=== PATIENT | female | born 1965 | race Caucasian/White ===

== ENCOUNTER → 2020-01-23 13:38 | Outpatient (ROUT) | payer SELFPAY ==
[2020-01-23 13:40] LABS: Urine Drug Scr, Empl Non-NIDA See Separate Report
== END ==
DX: Z02.1 Encounter for pre-employment examination (principal)
CPT/HCPCS: 81099

== ENCOUNTER → 2020-07-23 14:31 | Outpatient (CLI) | payer OTHER, SELFPAY ==
[2020-07-23] MEDS: COVID-19 VACC(MODERNA-1)/PF 100 MCG/0.5 ML VIAL IM (14:39)
== END ==
PROVIDERS: Visit Provider Internal Medicine
DX: Z23 Encounter for immunization (principal)
CPT/HCPCS: 0011A; 91301

== ENCOUNTER → 2020-08-19 08:41 | Outpatient (CLI) | payer OTHER, SELFPAY ==
[2020-08-19] MEDS: COVID-19 VACC #2, MRNA(MOD) 100 MCG/0.5 ML VIAL IM (08:45)
== END ==
PROVIDERS: Visit Provider Internal Medicine
DX: Z23 Encounter for immunization (principal)
CPT/HCPCS: 0012A; 91301

== ENCOUNTER → 2020-10-16 15:37 | Outpatient (CLI) | payer OTHER, SELFPAY ==
--- NOTE | 2020-10-16 15:37 | DI.MG.S_ITS ---
BILATERAL DIGITAL SCREENING MAMMOGRAM 3D/2D WITH CAD: 10/16/2020 CLINICAL: Routine screening. Comparison is made to exams dated: 02/21/2015 mammogram, 10/23/2016 mammogram, and 12/26/2017 mammogram - outside location. There are scattered fibroglandular elements in both breasts. Current study was also evaluated with a Computer Aided Detection (CAD) system. No significant masses, calcifications, or other findings are seen in either breast. There has been no significant interval change. IMPRESSION: NEGATIVE There is no mammographic evidence of malignancy. A 1 year screening mammogram is recommended. This exam was interpreted at Station ID: [id number]. NOTE: For mammograms, a report in lay terms will be sent to the patient. Approximately 15% of breast malignancies will not be visualized mammographically. In the management of a palpable breast mass, a negative mammogram must not discourage biopsy of a clinically suspicious lesion. Electronically Signed By: Lonnie Nation M.D., jr/lul:10/16/2020 15:56:56 letter sent: Normal Exam ACR BI-RADS Category 1: Negative [id number]
== END ==
PROVIDERS: PCP Family Medicine; Referring Provider Family Medicine; Visit Provider Family Medicine
DX: Z12.31 Encounter for screening mammogram for malignant neoplasm of breast (principal)
CPT/HCPCS: 77063; 77067

== ENCOUNTER → 2021-01-14 10:10 | Outpatient (CLI) | payer OTHER, SELFPAY ==
[2021-01-14 11:45] LABS: Alanine Aminotransferase 38 IU/L (<35); Albumin 4.4 g/dL (3.5-5.0); Albumin Globulin Ratio 1.4 (1.0-2.8); Alkaline Phosphatase 85 U/L (38-126); Aspartate Aminotransferase 39 IU/L (14-36); BUN Creatinine Ratio 25.6 (6-22); Bilirubin Total 0.2 mg/dL (0.2-1.3); Blood Urea Nitrogen 11 mg/dL (7-17); Calcium 9.7 mg/dL (8.4-10.2); Carbon Dioxide 25 mmol/L (22-32); Chloride 105 mmol/L (98-107); Estimated Glomerular Filt Rate > 60.0 mL/min (>60); Globulin 3.2 g/dL (1.7-4.1); Glucose 137 mg/dL (70-100); HEMOLYSIS < 15 (0-50); Potassium 3.9 mmol/L (3.4-5.1); Sodium 138 mmol/L (137-145); Total Protein 7.6 g/dL (6.3-8.2)
[2021-01-14 12:01] LABS: Creatinine Urine Random 26.9 mg/dL
[2021-01-14 12:08] LABS: Microalbumin Urine Random < 0.6 mg/dL (0-1.6)
[2021-01-14 12:29] LABS: TSH w/ Reflex to FT4 0.62 uIU/mL (0.47-4.68)
[2021-01-15 07:10] LABS: Immunoglobulin A 343 mg/dL (87-352)
[2021-01-15 16:08] LABS: Tissue Transglutaminase IgA <2 U/mL (0-3); Tissue Transglutaminase IgG 6 U/mL (0-5)
[2021-01-17 21:40] LABS: Calprotectin, Stool 72 ug/g (0-120)
== END ==
PROVIDERS: PCP Family Medicine; Referring Provider Nurse Practitioner; Visit Provider Nurse Practitioner
DX: R19.7 Diarrhea, unspecified (principal); E03.9 Hypothyroidism, unspecified; E78.5 Hyperlipidemia, unspecified; I10 Essential (primary) hypertension; R74.8 Abnormal levels of other serum enzymes
CPT/HCPCS: 36415; 80053; 82043; 82570; 82784; 83516; 83993; 84443

== ENCOUNTER 2021-02-10 15:47 | Emergency (ER) | payer OTHER, SELFPAY ==
[2021-02-10 15:56] VITALS: BP 195/88; PULSE 101; RESP 20; TEMP 36.2; O2SAT 98; BMI 25.7
--- NOTE | 2021-02-10 15:59 | DI.RAD.S_ITS ---
PROCEDURE: XR CHEST 1V INDICATIONS: chest pain TECHNIQUE: One view of the chest was acquired. COMPARISON: None. FINDINGS: Surgical changes and devices: Numerous surgical clips projecting at the base of neck Lungs and pleura: Lungs are clear. No pleural effusions or pneumothorax. Mediastinum: Mediastinal contours appear normal. Heart size is normal. Bones and chest wall: No suspicious bony lesions. Overlying soft tissues appear unremarkable. IMPRESSION: No acute disease. Dictated by: Jarvis Parker M.D. on 02/10/2021 at 16:34 Approved by: Jarvis Parker M.D. on 02/10/2021 at 16:35
[2021-02-10 16:07] LABS: Add Manual Diff / Slide Review NO; Basophils Absolute Auto 100 /uL (0-100); Basophils Percent Auto 0.8 % (0-2); Eosinophils Absolute Auto 300 /uL (0-450); Eosinophils Percent Auto 2.4 % (2-4); Hematocrit 42.9 % (36-46); Hemoglobin 14.6 g/dL (12.0-16.0); Lymphocytes Absolute Auto 4100 /uL (1100-4500); Lymphocytes Percent Auto 37.3 % (25-40); Mean Corpuscular Hemoglobin 30.8 PG (26-34); Mean Corpuscular Volume 90.7 fL (80-100); Monocytes Absolute Auto 1200 /uL (0-900); Monocytes Percent Auto 10.9 % (3-14); Neutrophils Absolute Auto 5300 /uL (1500-7000); Neutrophils Percent Auto 48.6 % (50-75); Platelet Count 362 X10^3/uL (150-400); Red Blood Cell Count 4.72 X10^6/uL (4.0-5.2)
--- NOTE | 2021-02-10 16:13 | ED.DIZZY ---
HPI - Dizziness General Chief Complaint: Dizziness Stated Complaint: dizzy, headache, elevated heartrate Time Seen by Provider: 02/10/21 15:56 Source: patient Mode of arrival: Ambulatory Limitations: no limitations History of Present Illness HPI Narrative: 55-year-old female former smoker with history of hypertension presents with a chief complaint of 3 days of rapid irregular heart rate, palpitations and associated dizziness. She denies any chest pain or shortness of breath and states that the dizziness and headache or associated with the episodes of high heart rate. She denies any recent travel, history of cancer but does have a remote history of a DVT and had been treated with Coumadin for 3 months. She denies any dietary change in has had no fever or chills. Related Data Home Medications Medication Instructions Recorded Confirmed alprazolam 0.25 mg tablet (Xanax) 0.25 mg PO TID 09/04/20 11/24/20 aspirin 81 mg chewable tablet 81 mg PO DAILY 09/04/20 11/24/20 cholecalciferol (vitamin D3) 125 mcg PO 09/04/20 11/24/20 mcg (5,000 unit) disintegrating tablet Previous Rx's Medication Instructions Recorded levothyroxine 112 mcg tablet 112 mcg PO DAILY #90 tab 09/25/20 (Synthroid) losartan 25 mg tablet 25 mg PO DAILY #90 tab 09/25/20 metoprolol succinate 100 mg 100 mg PO DAILY #90 tab 09/25/20 tablet,extended release 24 hr duloxetine 60 mg capsule,delayed 60 mg PO DAILY #90 cap 10/24/20 release (Cymbalta) Allergies Allergy/AdvReac Type Severity Reaction Status Date / Time hydrochlorothiazide Allergy Intermediate wheezing Verified 02/10/21 15:55 and backpain Review of Systems Review of Systems Narrative: GENERAL: Denies chills, fatigue, malaise, fever, sweats. HEENT: Denies sinus pain, ear pain, sore throat, difficulty swallowing, dizziness. RESPIRATORY: See HPI CARDIOVASCULAR: See HPI GASTROINTESTINAL: Denies nausea, vomiting, abdominal pain, diarrhea, constipation, melena. : Denies dysuria, frequency, incontinence, hematuria, urinary retention. MUSCULOSKELETAL: denies weakness, joint pain, or bony pain SKIN: Denies rash, skin lesions, or other NEUROLOGIC: Denies weakness, headache, numbness, change in speech, confusion, seizures, incoordination. PSYCHIATRIC: No concerning psychosocial issues. 12 point review of systems is negative except for those stated above Patient History Medical History Cardiac arrhythmia Chicken pox Deep vein thrombosis (~06/2017) Fractures Hyperlipidemia Hypertension Hyperthyroidism Last menstrual period (LMP) > 10 days ago Surgical History Biceps tendonosis of right shoulder History of appendectomy History of thyroidectomy History of tonsillectomy S/P rotator cuff repair Status post right breast lumpectomy Family History Father Hyperlipidemia Grandfather Cancer Social History Smoking Status: Former smoker Smoking Status: Former smoker alcohol intake frequency: 0-2 drinks per day Substance Use Type: does not use Exam Narrative Exam Narrative: GENERAL: [55] year old patient appears stated age. Well-developed patient, in mild distress. HEAD: Atraumatic. Normocephalic. EYES: Pupils equal round and reactive. Extraocular motions intact. No scleral icterus. No injection or drainage. ENT: Nose without bleeding, purulent drainage. Throat without erythema, tonsillar hypertrophy or exudate. Airway patent. NECK: Trachea midline. Non tender CARDIOVASCULAR: Regular rate and rhythm without murmurs, gallops, or rubs. RESPIRATORY: Clear to auscultation. Breath sounds equal bilaterally. No wheezes, rales, or rhonchi. GASTROINTESTINAL: Abdomen soft, non-tender, nondistended. EXTREMITIES: No edema or joint tenderness. BACK: Nontender without deformity or crepitance. No flank tenderness. NEURO: AOx3. SKIN: No rash or erythema of visible areas Initial Vital Signs Initial Vital Signs: Vital Signs Temperature 97.1 F L 02/10/21 15:56 Pulse Rate 101 H 02/10/21 15:56 Respiratory Rate 20 02/10/21 15:56 Blood Pressure 195/88 H 02/10/21 15:56 Pulse Oximetry 98 02/10/21 15:56 Course Course Course Narrative: During history and physical patient is noted to have episodes of rapid (up to the 120s) irregular rhythm that on the monitor appears to be AFib versus flutter. This resolved without intervention Orders Ordered: ED Orders 02/10/21 15:59 XR chest 1V Stat EKG-12 Lead Stat 02/10/21 16:00 Complete Blood Count AUTO DIFF Stat Comprehensive Metabolic Panel Stat Lipase Stat Troponin & CK Cardiac Panel Stat Consultations Consultation #1: Discussed with on-call Cardiology we sure the opinion that it is not classic for AFib in not worth initiating anticoagulation at this point time. He recommends sending him a face sheet and rhythm strips as well as increasing patient's metoprolol to 150 daily. This is all been related to the patient and she understands and is in agreement with the plan and diagnosis. Vital Signs Vital signs: Vital Signs - 8 hr 02/10/21 15:56 02/10/21 17:49 02/10/21 17:52 Temperature 97.1 F L Pulse Rate 101 H 88 85 Respiratory Rate 20 22 Blood Pressure 195/88 H 125/62 Pulse Oximetry 98 97 98 02/10/21 18:00 Temperature Pulse Rate 83 Respiratory Rate Blood Pressure 132/69 Pulse Oximetry 98 MDM - Dizziness Lab Data Result diagrams: 02/10/21 16:00 02/10/21 16:00 Labs: Lab Results 02/10/21 02/10/21 Range/Units 16:00 16:00 WBC 11.0 (4.5-11.0) X10^3/uL RBC 4.72 (4.0-5.2) X10^6/uL Hgb 14.6 (12.0-16.0) g/dL Hct 42.9 (36-46) % MCV 90.7 (80-100) fL MCH 30.8 (26-34) PG MCHC 34.0 (30-36) % RDW 13.0 (11.6-14.8) % Plt Count 362 (150-400) X10^3/uL Neut % (Auto) 48.6 L (50-75) % Lymph % (Auto) 37.3 (25-40) % [place] % (Auto) 10.9 (3-14) % Eos % (Auto) 2.4 (2-4) % Baso % (Auto) 0.8 (0-2) % Neut # (Auto) 5300 (5472-2238) /uL Lymph # (Auto) 4100 (3521-2773) /uL [place] # (Auto) 1200 H (0-900) /uL Eos # (Auto) 300 (0-450) /uL Baso # (Auto) 100 (0-100) /uL Sodium 139 (137-145) mmol/L Potassium 4.0 (3.4-5.1) mmol/L Chloride 104 (98-107) mmol/L Carbon Dioxide 24 (22-32) mmol/L BUN 11 (7-17) mg/dL Creatinine 0.58 (0.52-1.04) mg/dL Estimated GFR > 60.0 (>60) mL/min BUN/Creatinine Ratio 19.0 (6-22) Glucose 122 H (70-100) mg/dL Calcium 10.6 H (8.4-10.2) mg/dL Total Bilirubin 0.5 (0.2-1.3) mg/dL AST 50 H (14-36) IU/L ALT 49 H (<35) IU/L Alkaline Phosphatase 95 (38-126) U/L Total Creatine Kinase 97 (30-135) U/L CK-MB (CK-2) TNP CK-MB (CK-2) Rel Index TNP Troponin I < 0.012 (0.01-0.034) ng/mL Total Protein 8.4 H (6.3-8.2) g/dL Albumin 4.9 (3.5-5.0) g/dL Globulin 3.5 (1.7-4.1) g/dL Albumin/Globulin Ratio 1.4 (1.0-2.8) Lipase 220 (23-300) U/L Discharge Plan Departure Patient Disposition: Home Clinical Impression: Atrial fibrillation Qualifiers: Atrial fibrillation type: paroxysmal Qualified Code(s): I48.0 - Paroxysmal atrial fibrillation Instructions: DI for Atrial Fibrillation Activity Restrictions/Additional Instructions: *You have been diagnosed with [paroxysmal atrial fibrillation] *What to do: *Please continue to take your regular medications as directed. [ ] New medication prescriptions sent to your pharmacy: [ ] [ ] New medication written as a paper prescription [x ] No new medications given * I have discussed her case with on-call Cardiology and we have faxed your information to him. He will like to see you in the office, his contact information is attached below. Until follow-up we will hold off on anticoagulation as we discussed. Also, please begin taking the new dose of metoprolol (150 mg daily) tomorrow. *If you do not have a primary care provider please contact the [facility] Resource line at [phone]. They will ask some questions about your medical history and help get you set up with a doctor in the community. *Return to Emergency Department if you should have any new, worsening or concerning symptoms, such as [fever greater than 101 F, shaking chills, worsening pain, persistent vomiting or other bothersome symptoms] Prescriptions: No Action levothyroxine [Synthroid] 112 mcg tablet 112 mcg PO DAILY Qty: 90 RF: 2 losartan 25 mg tablet 25 mg PO DAILY Qty: 90 RF: 2 metoprolol succinate 100 mg tablet extended release 24 hr 100 mg PO DAILY Qty: 90 RF: 2 duloxetine [Cymbalta] 60 mg capsule,delayed release(DR/EC) 60 mg PO DAILY Qty: 90 RF: 2 alprazolam [Xanax] 0.25 mg tablet 0.25 mg PO TID RF: 0 cholecalciferol (vitamin D3) 125 mcg (5,000 unit) tablet,disintegrating PO RF: 0 aspirin 81 mg tablet,chewable 81 mg PO DAILY RF: 0 Referrals: Milind Naik MD [Primary Care Provider] - Mal Dorado MD [Physician] -
[2021-02-10 16:25] LABS: Alanine Aminotransferase 49 IU/L (<35); Albumin 4.9 g/dL (3.5-5.0); Albumin Globulin Ratio 1.4 (1.0-2.8); Alkaline Phosphatase 95 U/L (38-126); Aspartate Aminotransferase 50 IU/L (14-36); Bilirubin Total 0.5 mg/dL (0.2-1.3); Blood Urea Nitrogen 11 mg/dL (7-17); Calcium 10.6 mg/dL (8.4-10.2); Carbon Dioxide 24 mmol/L (22-32); Chloride 104 mmol/L (98-107); Creatine Kinase 97 U/L (30-135); Estimated Glomerular Filt Rate > 60.0 mL/min (>60); Globulin 3.5 g/dL (1.7-4.1); Glucose 122 mg/dL (70-100); HEMOLYSIS < 15 (0-50); Lipase 220 U/L (23-300); Sodium 139 mmol/L (137-145); Total Protein 8.4 g/dL (6.3-8.2)
[2021-02-10 16:37] LABS: Troponin I < 0.012 ng/mL (0.01-0.034)
[2021-02-10 17:49] VITALS: PULSE 88; RESP 22; O2SAT 97
[2021-02-10 17:52] VITALS: BP 125/62; PULSE 85; O2SAT 98
[2021-02-10 18:00] VITALS: BP 132/69; PULSE 83; O2SAT 98
== END 2021-02-10 18:58 | disposition home or self-care (01) ==
PROVIDERS: Emergency Provider Emergency Medicine; PCP Family Medicine
DX: I48.0 Paroxysmal atrial fibrillation (principal); Z79.01 Long term (current) use of anticoagulants
CPT/HCPCS: 36415; 71045; 80053; 82550; 83690; 84484; 85025; 93005; 99283; 99284

== ENCOUNTER → 2021-02-23 15:08 | Outpatient (CLI) | payer OTHER, SELFPAY ==
--- NOTE | 2021-03-18 11:03 | PM.CARDMON.1 ---
[employer] Report Referral & Results Date Patient Seen: 02/23/21 Requesting provider: Milind Naik Indication: Atrial fibrillation Duration of monitoring (days): 6 Diary information: There were 2 patient triggered events. Both these events were associated with sinus rhythm only Data: Minimum heart rate identified was 54 beats per minute at 07:52 on 02/24/2021 Maximum heart rate was 150 beats per minute at 12:04 on 03/01/2021 Less than 1% of identified beats were ventricular or supraventricular ectopic in origin, which would classify them as rare. No atrial fibrillation was identified Impression: Normal 6 day director speech and hearing without evidence of dysrhythmia including an absence of atrial fibrillation.
== END ==
PROVIDERS: PCP Internal Medicine Cardiovascular Disease; Referring Provider Family Medicine; Visit Provider Family Medicine
DX: I48.91 Unspecified atrial fibrillation (principal)
CPT/HCPCS: 93242; 93244

== ENCOUNTER 2021-04-14 15:39 | Emergency (ER) | payer OTHER, SELFPAY ==
[2021-04-14 15:42] VITALS: BP 136/62; PULSE 87; RESP 16; TEMP 36.4; O2SAT 99
--- NOTE | 2021-04-14 15:53 | ED.LOWEXIN ---
HPI - Extremity Injury (Lower) General Chief Complaint: Extremity Injury, Lower Stated Complaint: rt leg and buttock pain Time Seen by Provider: 04/14/21 15:53 Source: patient Mode of arrival: Ambulatory History of Present Illness HPI Narrative: 55-year-old female former smoker with history of hyperlipidemia, hypertension, hypothyroidism presents with a chief complaint of work related injury suffered just prior to arrival. She was walking and tripped over a stool and stepped awkwardly and felt a pulling and tearing sensation in her right buttock and right posterior thigh. She denies falling or any direct trauma. She has no loss of control of bowel or bladder. She has no midline back tenderness. She has no numbness, tingling or weakness. She has increased pain with use of her right leg but can not ambulate relatively well. Related Data Home Medications Medication Instructions Recorded Confirmed cholecalciferol (vitamin D3) 125 mcg PO 09/04/20 02/13/21 mcg (5,000 unit) disintegrating tablet aspirin 325 mg tablet 325 mg PO DAILY 02/13/21 02/13/21 famotidine 20 mg tablet 20 mg PO BID tab 02/13/21 02/13/21 mesalamine 1.2 gram tablet,delayed g PO 02/13/21 02/13/21 release Previous Rx's Medication Instructions Recorded levothyroxine 112 mcg tablet 112 mcg PO DAILY #90 tab 09/25/20 (Synthroid) losartan 25 mg tablet 25 mg PO DAILY #90 tab 09/25/20 duloxetine 60 mg capsule,delayed 60 mg PO DAILY #90 cap 10/24/20 release (Cymbalta) albuterol sulfate 90 mcg/actuation 2 puff INHALATION Q4-6H PRN #8.5 g 02/11/21 aerosol inhaler (Ventolin HFA) fluticasone propionate 110 2 puff INHALATION BID #12 g 02/11/21 mcg/actuation HFA aerosol inhaler (Flovent HFA) metoprolol succinate 100 mg 200 mg PO DAILY #180 tab 02/13/21 tablet,extended release 24 hr alprazolam 0.25 mg tablet (Xanax) 0.25 mg PO TID PRN #30 tab 04/13/21 acetaminophen 300 mg-codeine 30 mg 1 tab PO Q6H PRN #20 tab 04/14/21 tablet ketorolac 10 mg tablet 10 mg PO Q6H PRN #14 tab 04/14/21 Allergies Allergy/AdvReac Type Severity Reaction Status Date / Time hydrochlorothiazide Allergy Intermediate wheezing Verified 02/13/21 14:53 and backpain Review of Systems Review of Systems Narrative: GENERAL: Denies chills, fatigue, malaise, fever, sweats. HEENT: Denies sinus pain, ear pain, sore throat, difficulty swallowing, dizziness. RESPIRATORY: Denies dyspnea, cough, wheezing, hemoptysis, sputum. CARDIOVASCULAR: Denies chest pain, palpitations, orthopnea, edema, GASTROINTESTINAL: Denies nausea, vomiting, abdominal pain, diarrhea, constipation, melena. : Denies dysuria, frequency, incontinence, hematuria, urinary retention. MUSCULOSKELETAL: See HPI SKIN: Denies rash, skin lesions, or other NEUROLOGIC: Denies weakness, headache, numbness, change in speech, confusion, seizures, incoordination. PSYCHIATRIC: No concerning psychosocial issues. 12 point review of systems is negative except for those stated above Patient History Medical History Cardiac arrhythmia Chicken pox Deep vein thrombosis (~06/2017) Fractures Hyperlipidemia Hypertension Hyperthyroidism Last menstrual period (LMP) > 10 days ago Surgical History Biceps tendonosis of right shoulder History of appendectomy History of thyroidectomy History of tonsillectomy S/P rotator cuff repair Status post right breast lumpectomy Family History Father Hyperlipidemia Grandfather Cancer Social History Smoking Status: Former smoker Smoking Status: Former smoker alcohol intake frequency: 0-2 drinks per day Substance Use Type: does not use Exam Narrative Exam Narrative: GENERAL: [55 year old patient appears stated age. Well-developed patient, in mild distress. Standing, able to ambulate but with antalgic gait HEAD: Atraumatic. Normocephalic. EYES: Pupils equal round and reactive. Extraocular motions intact. No scleral icterus. No injection or drainage. ENT: Nose without bleeding, purulent drainage. Throat without erythema, tonsillar hypertrophy or exudate. Airway patent. NECK: Trachea midline. Non tender CARDIOVASCULAR: Regular rate and rhythm without murmurs, gallops, or rubs. RESPIRATORY: Clear to auscultation. Breath sounds equal bilaterally. No wheezes, rales, or rhonchi. GASTROINTESTINAL: Abdomen soft, non-tender, nondistended. EXTREMITIES: No obvious swelling, ecchymosis or edema. Pain to palpation of buttocks and hamstrings. Patient has full strength with use of hamstrings, flexion at knee. No calf pain, Achilles intact. Suspect hamstrings in gluteal strain BACK: Nontender without deformity or crepitance. No flank tenderness. NEURO: AOx3. SKIN: No rash or erythema of visible areas Initial Vital Signs Initial Vital Signs: Vital Signs Temperature 97.5 F L 04/14/21 15:42 Pulse Rate 87 04/14/21 15:42 Respiratory Rate 16 04/14/21 15:42 Blood Pressure 136/62 04/14/21 15:42 Pulse Oximetry 99 04/14/21 15:42 Course Vital Signs Vital signs: Vital Signs - 8 hr 04/14/21 15:42 Temperature 97.5 F L Pulse Rate 87 Respiratory Rate 16 Blood Pressure 136/62 Pulse Oximetry 99 MDM - Extremity Injury (Lower) MDM Narrative Medical decision making narrative: Patient felt pulling in her right buttock and posterior right leg after stepping awkwardly. She has full range of motion and strength. No imaging indicated at this point time. Return precautions given and questions answered to her apparent satisfaction Discharge Plan Departure Patient Disposition: Home Clinical Impression: Right hamstring injury Qualifiers: Encounter type: initial encounter Qualified Code(s): S76.301A - Unspecified injury of muscle, fascia and tendon of the posterior muscle group at thigh level, right thigh, initial encounter Instructions: DI for Hamstring Strain Activity Restrictions/Additional Instructions: *You have been diagnosed with [right hamstring injury, no evidence of tear. *What to do: *Please continue to take your regular medications as directed. [x ] New medication prescriptions sent to your pharmacy: [ [facility]] [ ] New medication written as a paper prescription [ ] No new medications given *Please follow up with your primary care provider in 2-3 days, call for an appointment. Let them know you were seen in the Emergency Department and that we ask that you be seen in follow up. We will electronically transmit a record of today's note if your PCP is in our system *If you do not have a primary care provider please contact the [facility] Resource line at [phone]. They will ask some questions about your medical history and help get you set up with a doctor in the community. *Return to Emergency Department if you should have any new, worsening or concerning symptoms, such as [fever greater than 101 F, shaking chills, worsening pain, persistent vomiting or other bothersome symptoms] Prescriptions: New ketorolac 10 mg tablet 10 mg PO Q6H PRN (Reason: pain) Qty: 14 RF: 0 acetaminophen-codeine 300-30 mg tablet 1 tab PO Q6H PRN (Reason: pain) Qty: 20 RF: 0 No Action levothyroxine [Synthroid] 112 mcg tablet 112 mcg PO DAILY Qty: 90 RF: 2 losartan 25 mg tablet 25 mg PO DAILY Qty: 90 RF: 2 duloxetine [Cymbalta] 60 mg capsule,delayed release(DR/EC) 60 mg PO DAILY Qty: 90 RF: 2 albuterol sulfate [Ventolin HFA] 90 mcg/actuation HFA aerosol inhaler 2 puff inhalation Q4-6H PRN (Reason: shortness of breath or wheezing) Qty: 8.5 RF: 2 Flovent HFA 110 mcg/actuation HFA aerosol inhaler 2 puff inhalation BID Qty: 12 RF: 2 alprazolam [Xanax] 0.25 mg tablet 0.25 mg PO TID PRN (Reason: anxiety) Qty: 30 RF: 0 aspirin 325 mg tablet 325 mg PO DAILY RF: 0 famotidine 20 mg tablet 20 mg PO BID RF: 0 mesalamine 1.2 gram tablet,delayed release (DR/EC) PO RF: 0 metoprolol succinate 100 mg tablet extended release 24 hr 200 mg PO DAILY Qty: 180 RF: 2 cholecalciferol (vitamin D3) 125 mcg (5,000 unit) tablet,disintegrating PO RF: 0 Referrals: Mal Dorado MD [Primary Care Provider] - Stand Alone Forms: Work Release Note
--- NOTE | 2021-04-14 16:11 | PC.NURSE ---
Addendum entered by Wilma Morataya R.N. 04/14/21 16:11: exam deferred to Dr. Gu Original Note: exam referred to Dr. gu
== END 2021-04-14 16:14 | disposition home or self-care (01) ==
PROVIDERS: Emergency Provider Emergency Medicine; PCP Internal Medicine Cardiovascular Disease
DX: S76.301A Unspecified injury of muscle, fascia and tendon of the posterior muscle group at thigh level, right thigh, initial encounter (principal); X50.1XXA Overexertion from prolonged static or awkward postures, initial encounter; Y99.0 Civilian activity done for income or pay
CPT/HCPCS: 99281

== ENCOUNTER → 2021-05-27 18:32 | Outpatient (CLI) | payer OTHER, SELFPAY | PROVIDERS: PCP Internal Medicine Cardiovascular Disease; Referring Provider Internal Medicine; Visit Provider Internal Medicine | DX: Z23 Encounter for immunization (principal) | CPT/HCPCS: 90471; 90686 ==

== ENCOUNTER → 2021-07-16 08:41 | Outpatient (CLI) | payer OTHER, SELFPAY ==
[2021-07-16 09:08] LABS: Hemoglobin A1C% w Est Avg Glu 6.1 % (4.0-6.0)
[2021-07-16 09:11] LABS: Alanine Aminotransferase 57 IU/L (<35); Albumin 4.6 g/dL (3.5-5.0); Albumin Globulin Ratio 1.4 (1.0-2.8); Alkaline Phosphatase 77 U/L (38-126); Aspartate Aminotransferase 55 IU/L (14-36); Bilirubin Total 0.4 mg/dL (0.2-1.3); Blood Urea Nitrogen 13 mg/dL (7-17); Calcium 9.6 mg/dL (8.4-10.2); Carbon Dioxide 28 mmol/L (22-32); Chloride 103 mmol/L (98-107); Estimated Glomerular Filt Rate > 60.0 mL/min (>60); Globulin 3.4 g/dL (1.7-4.1); Glucose 106 mg/dL (70-100); HEMOLYSIS < 15 (0-50); Potassium 4.2 mmol/L (3.4-5.1); Sodium 139 mmol/L (137-145)
== END ==
PROVIDERS: PCP Family Medicine; Referring Provider Family Medicine; Visit Provider Family Medicine
DX: R74.8 Abnormal levels of other serum enzymes (principal); I10 Essential (primary) hypertension; E78.2 Mixed hyperlipidemia; R73.9 Hyperglycemia, unspecified
CPT/HCPCS: 36415; 80053; 83036

== ENCOUNTER → 2021-07-29 10:09 | Outpatient (CLI) | payer OTHER, SELFPAY ==
[2021-07-30 04:34] LABS: HBsAg Screen Negative (Negative); Hepatitis A Antibody IgM Negative (Negative); Hepatitis B Core Antibody IgM Negative (Negative); Hepatitis C Antibody <0.1 s/co ratio (0.0-0.9)
== END ==
PROVIDERS: PCP Family Medicine; Referring Provider Family Medicine; Visit Provider Family Medicine
DX: R74.8 Abnormal levels of other serum enzymes (principal)
CPT/HCPCS: 36415; 80074

== ENCOUNTER → 2021-08-10 07:41 | Outpatient (CLI) | payer OTHER, SELFPAY ==
--- NOTE | 2021-08-10 | DI.MRI.S_ITS ---
PROCEDURE: MR HEAD/BRAIN WO/W CON INDICATIONS: Other migraine, not intractable TECHNIQUE: Noncontrast sagittal and axial FLAIR, axial and coronal T2 fast spin echo, axial VIBE, axial gradient echo, axial diffusion and ADC through the brain. After the administration of contrast, axial and coronal VIBE with fat saturation through the brain. COMPARISON: None. FINDINGS: Image quality: Excellent. CSF spaces: Ventricles are normal in size and shape. Basal cisterns are patent. No extra-axial fluid collections. Brain: Multiple foci abnormal T2 weighted hyperintensity are seen within the periventricular deep white. Numerous juxtacortical lesions are also seen, primarily involving the frontal lobes. There is involvement of the corpus callosum. A few brainstem lesions are seen. No definite cerebellar lesions can be seen. These lesions do not enhance. No intracranial bleeds or mass effects. Claire-white matter interface appears intact. No abnormal intracranial enhancement. Diffusion weighted images show no acute ischemic insults. Brainstem appears normal. Normal intravascular flow voids are present. Skull and face: Calvarial marrow signal is normal. Orbits appear normal. Sinuses: Sinuses and mastoids are clear. Mild rightward nasal septal deviation can be seen. IMPRESSION: Numerous foci of abnormal T2 weighted hyperintensity can be seen, without abnormal enhancement. The imaging appearance is highly suspicious for multiple sclerosis. A cause of headache is not seen. Dictated by: Juan Miguel Chamberlain M.D. on 08/10/2021 at 8:10 Approved by: Juan Miguel Chamberlain M.D. on 08/10/2021 at 8:13
== END ==
PROVIDERS: PCP Family Medicine; Referring Provider Ophthalmology; Visit Provider Ophthalmology
DX: G43.809 Other migraine, not intractable, without status migrainosus (principal); J34.2 Deviated nasal septum
CPT/HCPCS: 70553

== ENCOUNTER → 2021-08-20 07:17 | Outpatient (CLI) | payer OTHER, SELFPAY | PROVIDERS: PCP Family Medicine; Referring Provider Family Medicine; Visit Provider Family Medicine | DX: K76.0 Fatty (change of) liver, not elsewhere classified (principal); R74.8 Abnormal levels of other serum enzymes; E78.2 Mixed hyperlipidemia ==

== ENCOUNTER → 2021-08-20 07:19 | Outpatient (CLI) | payer OTHER, SELFPAY ==
--- NOTE | 2021-08-20 07:23 | DI.US.S_ITS ---
PROCEDURE: US ABDOMEN LIMITED INDICATIONS: PERSISTENT ELEVATED LIVER ENZYMES TECHNIQUE: Real-time scanning was performed of the abdominal and retroperitoneal organs, with image documentation. COMPARISON: None. FINDINGS: Liver: Increased echogenicity, compatible hepatic steatosis. Measures 12.5 cm in length. Gallbladder: Within normal limits. No shadowing gallstones. Biliary ducts: Intrahepatic bile ducts are non-dilated. Extrahepatic bile duct caliber measures 5.5 mm. Normal is 6-7 mm or less in diameter, or 10 mm or less post-cholecystectomy. Pancreas: Visualized portions of the pancreas are sonographically normal. Miscellaneous: No free abdominal fluid. IMPRESSION: 1. Hepatic steatosis. Dictated by: Etienne Cook M.D. on 08/20/2021 at 9:18 Approved by: Etienne Cook M.D. on 08/20/2021 at 9:20
[2021-08-20 08:40] LABS: Add Manual Diff / Slide Review NO; Basophils Absolute Auto 0 /uL (0-100); Basophils Percent Auto 0.6 % (0-2); Eosinophils Absolute Auto 200 /uL (0-450); Eosinophils Percent Auto 3.4 % (2-4); Hematocrit 40.6 % (36-46); Hemoglobin 13.9 g/dL (12.0-16.0); Lymphocytes Absolute Auto 2500 /uL (1100-4500); Lymphocytes Percent Auto 39.6 % (25-40); Mean Corpuscular HGB Conc 34.3 % (30-36); Mean Corpuscular Volume 90.3 fL (80-100); Monocytes Absolute Auto 600 /uL (0-900); Monocytes Percent Auto 9.7 % (3-14); Neutrophils Absolute Auto 3000 /uL (1500-7000); Neutrophils Percent Auto 46.7 % (50-75); Platelet Count 322 X10^3/uL (150-400); Red Cell Distribution Width 12.6 % (11.6-14.8); White Blood Cell Count 6.3 X10^3/uL (4.5-11.0)
[2021-08-20 08:52] LABS: Alanine Aminotransferase 64 IU/L (<35); Albumin 4.7 g/dL (3.5-5.0); Albumin Globulin Ratio 1.4 (1.0-2.8); Alkaline Phosphatase 85 U/L (38-126); Aspartate Aminotransferase 65 IU/L (14-36); BUN Creatinine Ratio 22.2 (6-22); Bilirubin Total 0.6 mg/dL (0.2-1.3); Blood Urea Nitrogen 14 mg/dL (7-17); Calcium 9.6 mg/dL (8.4-10.2); Carbon Dioxide 28 mmol/L (22-32); Chloride 102 mmol/L (98-107); Estimated Glomerular Filt Rate > 60.0 mL/min (>60); Globulin 3.4 g/dL (1.7-4.1); Glucose 105 mg/dL (70-100); HEMOLYSIS < 15 (0-50); Potassium 4.4 mmol/L (3.4-5.1); Sodium 137 mmol/L (137-145); Total Protein 8.1 g/dL (6.3-8.2)
[2021-08-20 08:58] LABS: Hemoglobin A1C% w Est Avg Glu 5.9 % (4.0-6.0)
== END ==
PROVIDERS: PCP Family Medicine; Referring Provider Podiatrist Foot & Ankle Surgery; Visit Provider Podiatrist Foot & Ankle Surgery
DX: E78.2 Mixed hyperlipidemia (principal); R74.8 Abnormal levels of other serum enzymes; Z01.812 Encounter for preprocedural laboratory examination; K76.0 Fatty (change of) liver, not elsewhere classified
CPT/HCPCS: 36415; 76705; 80053; 83036; 85025; 93005

== ENCOUNTER → 2021-09-07 13:12 | Outpatient (CLI) | payer OTHER, SELFPAY ==
[2021-09-07 15:53] LABS: Vitamin B12 Reflex MMA if <400 745 pg/mL (239-931)
== END ==
PROVIDERS: PCP Family Medicine; Referring Provider Specialist; Visit Provider Specialist
DX: H54.7 Unspecified visual loss (principal); R41.3 Other amnesia
CPT/HCPCS: 36415; 82607

== ENCOUNTER → 2021-10-29 09:29 | Outpatient (CLI) | payer OTHER, SELFPAY ==
--- NOTE | 2021-10-29 | DI.MRI.S_ITS ---
PROCEDURE: MR HEAD/BRAIN WO/W CON INDICATIONS: ABNORMAL MRI TECHNIQUE: Noncontrast axial T1 spin echo, axial T2 fast spin echo, sagittal and axial FLAIR, coronal T2 fast spin echo, axial gradient echo, axial diffusion and ADC through the brain. After the administration of contrast, axial and coronal 3D VIBE or T1 spin echo with fat saturation through the brain. COMPARISON: [facility], MR, MR HEAD/BRAIN WO/W CON, 08/10/2021, 8:22. FINDINGS: Image quality: Diagnostic, with note made of motion artifact. CSF Spaces: Basal cisterns are patent. No extra-axial fluid collections. Ventricles are normal in size and shape. Brain: Several foci of scattered T2 weighted hyperintensity can be seen primarily within the periventricular deep white matter. Several juxtacortical lesions can also be seen. Potential brainstem lesions are present, although not well seen. These foci do not enhance. Compared to the prior MRI dated 08/10/2021, these are not progressed. No midline shift. No intracranial bleeds or masses. No abnormal intracranial enhancement. The brainstem appears normal. Diffusion-weighted images demonstrate no acute ischemic insults. Normal intravascular flow voids are present. Skull and face: Calvarial marrow is normal in signal. Orbits appear normal. Sinuses: Sinuses and mastoids appear clear. IMPRESSION: Stable foci of abnormal T2 weighted hyperintensity can be seen, including within the juxtacortical white matter. These are consistent with stable multiple sclerosis, although not pathognomonic. Dictated by: Juan Miguel Chamberlain M.D. on 10/29/2021 at 9:08 Approved by: Juan Miguel Chamberlain M.D. on 10/29/2021 at 9:10
== END ==
PROVIDERS: PCP Family Medicine; Referring Provider Specialist; Visit Provider Specialist
DX: R90.89 Other abnormal findings on diagnostic imaging of central nervous system (principal)
CPT/HCPCS: 70553; A9579

== ENCOUNTER 2021-12-08 15:42 | Emergency (ER) | payer OTHER, SELFPAY ==
[2021-12-08] VITALS (8 sets, daily range): BP systolic 125–158; BP diastolic 60–90; PULSE 85–115; RESP 20–25; TEMP 36.7; O2SAT 96–99
--- NOTE | 2021-12-08 16:04 | DI.RAD.S_ITS ---
PROCEDURE: XR CHEST 2V INDICATIONS: Chest pain with inspiration; ?PE TECHNIQUE: 2 views of the chest were acquired. COMPARISON: [facility], CR, XR CHEST 1V, 02/10/2021, 16:02. FINDINGS: Surgical changes and devices: Surgical clips are noted in neck soft tissue unchanged from prior study. Lungs and pleura: Lungs are clear. No pleural effusions or pneumothorax. Mediastinum: Mediastinal contours are normal. Heart size is normal. Bones and chest wall: No suspicious bony abnormalities. Soft tissues appear unremarkable. IMPRESSION: No acute cardiopulmonary pathology. Dictated by: Darrell Peters M.D. on 12/08/2021 at 16:31 Approved by: Darrell Peters M.D. on 12/08/2021 at 16:31
[2021-12-08 16:10] LABS: Add Manual Diff / Slide Review NO; Basophils Absolute Auto 0 /uL (0-100); Basophils Percent Auto 0.4 % (0-2); Eosinophils Absolute Auto 100 /uL (0-450); Hematocrit 41.8 % (36-46); Hemoglobin 14.4 g/dL (12.0-16.0); Lymphocytes Absolute Auto 2600 /uL (1100-4500); Lymphocytes Percent Auto 30.8 % (25-40); Mean Corpuscular HGB Conc 34.5 % (30-36); Mean Corpuscular Hemoglobin 30.7 PG (26-34); Mean Corpuscular Volume 88.9 fL (80-100); Monocytes Absolute Auto 900 /uL (0-900); Monocytes Percent Auto 10.1 % (3-14); Neutrophils Absolute Auto 4800 /uL (1500-7000); Neutrophils Percent Auto 57.7 % (50-75); Platelet Count 371 X10^3/uL (150-400); Red Cell Distribution Width 12.3 % (11.6-14.8); White Blood Cell Count 8.4 X10^3/uL (4.5-11.0)
--- NOTE | 2021-12-08 16:11 | DI.CT.S_ITS ---
PROCEDURE: CT ANGIO CHEST PE PROTOCOL INDICATIONS: ?PE TECHNIQUE: After the administration of intravenous contrast, 2 mm thick sections acquired from the pulmonary apices to the posterior costophrenic angles. 3-dimensional maximum intensity projection (MIP) coronal and sagittal reformats were then acquired through the thorax. For radiation dose reduction, the following was used: automated exposure control, adjustment of mA and/or kV according to patient size. COMPARISON: None. FINDINGS: Image quality: Excellent. Pulmonary arteries: Pulmonary arteries are normal in size, and demonstrate no intraluminal filling defects to suggest central pulmonary embolism. Lungs and pleura: Linear atelectasis, inferior lingula of the left lung. No pleural effusions or pneumothorax. Central and peripheral airways are patent. Mediastinum: Heart size is normal, without pericardial effusion. No mediastinal or hilar adenopathy. Thoracic aorta is normal in caliber and enhancement. Esophagus is normal in caliber, without hiatal hernia. Bones and chest wall: No suspicious bony lesions. Ribs and thoracic spine appear intact throughout. Extensive presumed thyroidectomy clips. No axillary or supraclavicular adenopathy. Abdomen: Visualized upper abdominal solid organs appear normal in the early arterial phase of enhancement. IMPRESSION: 1. No evidence acute pulmonary emboli. 2. No evidence acute pulmonary process. Dictated by: Nile Florez M.D. on 12/08/2021 at 16:51 Approved by: Nile Florez M.D. on 12/08/2021 at 16:54
[2021-12-08 16:19] LABS: Prothrombin Time 11.7 SECONDS (10.1-12.7)
[2021-12-08 16:21] LABS: PTT Partial Thromboplastin Tim 33 SECONDS (26.4-36.2)
[2021-12-08 16:22] LABS: Alanine Aminotransferase 45 IU/L (<35); Albumin 5.2 g/dL (3.5-5.0); Albumin Globulin Ratio 1.5 (1.0-2.8); Alkaline Phosphatase 87 U/L (38-126); Aspartate Aminotransferase 47 IU/L (14-36); BUN Creatinine Ratio 17.3 (6-22); Bilirubin Total 0.3 mg/dL (0.2-1.3); Blood Urea Nitrogen 9 mg/dL (7-17); Calcium 9.7 mg/dL (8.4-10.2); Carbon Dioxide 25 mmol/L (22-32); Chloride 102 mmol/L (98-107); Estimated Glomerular Filt Rate > 60 mL/min (>60); Globulin 3.5 g/dL (1.7-4.1); Glucose 146 mg/dL (70-100); HEMOLYSIS 24 (0-50); Sodium 139 mmol/L (137-145); Total Protein 8.7 g/dL (6.3-8.2)
[2021-12-08 16:34] LABS: Troponin I < 0.012 ng/mL (0.01-0.034)
--- NOTE | 2021-12-08 17:24 | ED.CHESTPAIN ---
HPI - Chest Pain <Rashawn Orellana PA-C - Last Filed: 12/08/21 19:23> General Chief Complaint: Chest Pain Stated Complaint: BACK PAIN RIGHT LUNG PAIN Time Seen by Provider: 12/08/21 15:46 Source: patient and family Mode of arrival: Wheelchair History of Present Illness HPI narrative: 56-year-old female with past medical history DVT, hyperlipidemia, hypothyroidism, hypertension, status post ankle surgery sen by the [facility] due to concern for a pulmonary embolism. Patient states she is nonweightbearing currently, with limited movements. Patient complains of pleuritic pain in the right upper back that started 2 days ago, and much worsened this morning. Patient states that she has pain every time on inspiration. Patient denies chest pain, shortness of breath, fever, chills, nausea, vomiting, abdominal pain, dysuria, lightheadedness, dizziness, syncope. Patient has a prior history of DVT. Patient is not on blood thinners. Patient is on baby aspirin twice a day. Related Data Home Medications Medication Instructions Recorded Confirmed cholecalciferol (vitamin D3) 125 mcg PO 09/04/20 02/13/21 mcg (5,000 unit) disintegrating tablet aspirin 325 mg tablet 325 mg PO DAILY 02/13/21 02/13/21 famotidine 20 mg tablet 20 mg PO BID tab 02/13/21 02/13/21 mesalamine 1.2 gram tablet,delayed g PO 02/13/21 02/13/21 release Previous Rx's Medication Instructions Recorded albuterol sulfate 90 mcg/actuation 2 puff INHALATION Q4-6H PRN #8.5 g 02/11/21 aerosol inhaler (Ventolin HFA) metoprolol succinate 100 mg 200 mg PO DAILY #180 tab 02/13/21 tablet,extended release 24 hr ketorolac 10 mg tablet 10 mg PO Q6H PRN #14 tab 04/14/21 fluticasone propionate 110 2 puff INHALATION BID #12 g 05/12/21 mcg/actuation HFA aerosol inhaler (Flovent HFA) losartan 25 mg tablet 25 mg PO DAILY #90 tab 06/12/21 duloxetine 60 mg capsule,delayed 60 mg PO DAILY #90 cap 07/06/21 release (Cymbalta) levothyroxine 112 mcg tablet 112 mcg PO DAILY #90 tab 07/06/21 (Synthroid) acetaminophen 300 mg-codeine 30 mg 1 tab PO Q6H PRN #20 tab 10/13/21 tablet alprazolam 0.25 mg tablet (Xanax) 0.25 mg PO TID PRN #30 tab 11/09/21 Allergies Allergy/AdvReac Type Severity Reaction Status Date / Time hydrochlorothiazide Allergy Intermediate wheezing Verified 12/08/21 15:39 and backpain Review of Systems <Rashawn Orellana PA-C - Last Filed: 12/08/21 19:23> Review of Systems ROS Unobtainable: All systems reviewed & are unremarkable except as noted in HPI and below Constitutional Constitutional: Denies chills, Denies fatigue, Denies fever(s), Denies frequent falls, Denies lethargy and Denies weakness Eyes Eyes: Denies change in vision, Denies eye discharge, Denies irritation and Denies loss of vision ENT Ears, Nose, Mouth, and Throat: Denies change in voice, Denies dizziness, Denies neck pain, Denies sore throat and Denies throat swelling Cardiovascular Cardiovascular: Denies chest pain, Denies irregular heart rhythm, Denies lightheadedness, Denies palpitations, Denies dyspnea, Denies dyspnea on exertion and Denies orthopnea Respiratory Respiratory: Denies cough, Denies dyspnea, Denies dyspnea on exertion and Denies wheezing Gastrointestinal Gastrointestinal: Denies abdominal pain, Denies change in bowel habits, Denies diarrhea, Denies nausea and Denies vomiting Genitourinary Genitourinary: Denies hematuria, Denies flank pain, Denies urinary incontinence and Denies urinary urgency Musculoskeletal Musculoskeletal: Denies back pain, Denies muscle weakness, Denies neck pain, Denies numbness and Denies tingling Comments: Right-sided upper back pain with inspiration Integumentary/Breasts Skin/Breast: Denies pruritus, Denies erythema, Denies rash and Denies wounds Neurologic Neurologic: Denies behavioral changes, Denies confusion, Denies dizziness, Denies frequent falls, Denies loss of vision, Denies numbness, Denies tingling and Denies weakness Psychiatric Psychiatric: Denies anxiety, Denies behavioral changes, Denies confusion, Denies depression, Denies homicidal ideation and Denies suicidal ideation Endocrine Endocrine: Denies fatigue, Denies flushing and Denies palpitations Hematologic/Lymphatic Hematologic/Lymphatic: Denies easy bruising Allergic/Immunologic Allergic/Immunologic: Denies urticaria, Denies throat swelling and Denies wheezing Patient History <Rashawn Orellana PA-C - Last Filed: 12/08/21 19:23> Medical History Cardiac arrhythmia Chicken pox Deep vein thrombosis (~06/2017) Elevated liver enzymes Fractures Hepatic steatosis Hyperlipidemia Hypertension Hyperthyroidism Last menstrual period (LMP) > 10 days ago Surgical History Biceps tendonosis of right shoulder History of appendectomy History of thyroidectomy History of tonsillectomy S/P rotator cuff repair Status post right breast lumpectomy Family History Father Hyperlipidemia Grandfather Cancer Social History Smoking Status: Former smoker Smoking Status: Former smoker alcohol intake frequency: 0-2 drinks per day Substance Use Type: does not use Exam <Rashawn Orellana PA-C - Last Filed: 12/08/21 19:23> Narrative Exam Narrative: Const General:?cooperative, healthy appearing and comfortable [facility] Head:?normal to inspection Ears:?hearing grossly normal bilaterally Nose:?external nose normal Face and sinus:?normal facial exam and sinuses nontender Mouth:?oral mucosae normal Throat:?posterior oropharynx normal Eyes General:?appearance normal, both eyes and all related structures Neck Neck:?normal visual inspection and no lymphadenopathy noted Resp Effort & Inspection:?normal respiratory effort Auscultation:?clear to auscultation bilaterally Cardio Rate:?regular rate Rhythm:?regular rhythm Musculoskeletal Right leg in short boot. No appreciable swelling, tenderness to palpation. Surgical wound still healing. No signs of infection. Neuro General:?patient alert, patient awake and patient oriented x3 Initial Vital Signs Initial Vital Signs: Vital Signs Temperature 98.0 F 12/08/21 15:48 Pulse Rate 115 H 12/08/21 15:48 Respiratory Rate 12/08/21 15:48 Blood Pressure 158/90 H 12/08/21 15:48 Pulse Oximetry 97 12/08/21 15:48 <Anisa Cantrell MD - Last Filed: 12/15/21 06:30> Initial Vital Signs Initial Vital Signs: Vital Signs Temperature 98.0 F 12/08/21 15:48 Pulse Rate 115 H 12/08/21 15:48 Respiratory Rate 22 12/08/21 15:48 Blood Pressure 158/90 H 12/08/21 15:48 Pulse Oximetry 97 12/08/21 15:48 Course <Rashawn Orellana PA-C - Last Filed: 12/08/21 19:23> Orders Ordered: Discontinued Medications Acetaminophen (Acetaminophen 325 Mg Tablet) 975 mg PO NOW ONE Stop: 12/08/21 17:18 Last Admin: 12/08/21 17:36 Dose: 975 mg Documented by: MATHEUS Ketorolac Tromethamine (Ketorolac 30 Mg/Ml Vial) 15 mg IV NOW ONE Stop: 12/08/21 17:07 Last Admin: 12/08/21 17:37 Dose: Not Given Documented by: MATHEUS Vital Signs Vital signs: Vital Signs - 8 hr 12/08/21 15:48 12/08/21 16:09 12/08/21 16:10 Temperature 98.0 F Pulse Rate 115 H 89 87 Respiratory Rate 22 24 Blood Pressure 158/90 H 125/60 Pulse Oximetry 97 96 96 12/08/21 16:30 12/08/21 17:00 12/08/21 17:30 Temperature Pulse Rate 96 H 89 85 Respiratory Rate 25 H 20 23 Blood Pressure Pulse Oximetry 96 97 99 12/08/21 18:00 12/08/21 18:54 Temperature Pulse Rate 89 Respiratory Rate 24 Blood Pressure 128/64 128/64 Pulse Oximetry 97 <Anisa Cantrell MD - Last Filed: 12/15/21 06:30> Orders Ordered: Discontinued Medications Acetaminophen (Acetaminophen 325 Mg Tablet) 975 mg PO NOW ONE Stop: 12/08/21 17:18 Last Admin: 12/08/21 17:36 Dose: 975 mg Documented by: MATHEUS Ketorolac Tromethamine (Ketorolac 30 Mg/Ml Vial) 15 mg IV NOW ONE Stop: 12/08/21 17:07 Last Admin: 12/08/21 17:37 Dose: Not Given Documented by: MATHEUS Vital Signs Vital signs: Vital Signs - 8 hr 12/08/21 15:48 12/08/21 16:09 12/08/21 16:10 Temperature 98.0 F Pulse Rate 115 H 89 87 Respiratory Rate 22 24 Blood Pressure 158/90 H 125/60 Pulse Oximetry 97 96 96 12/08/21 16:30 12/08/21 17:00 12/08/21 17:30 Temperature Pulse Rate 96 H 89 85 Respiratory Rate 25 H 20 23 Blood Pressure Pulse Oximetry 96 97 99 12/08/21 18:00 12/08/21 18:54 Temperature Pulse Rate 89 Respiratory Rate 24 Blood Pressure 128/64 128/64 Pulse Oximetry 97 MDM - Chest Pain <Rashawn Orellana PA-C - Last Filed: 12/08/21 19:23> Lab Data Lab results narrative: Labs within normal limits. Troponin x2 normal. Result diagrams: 12/08/21 16:00 12/08/21 16:00 Labs: Lab Results 12/08/21 12/08/21 12/08/21 Range/Units 16:00 16:00 16:00 WBC 8.4 (4.5-11.0) X10^3/uL RBC 4.70 (4.0-5.2) X10^6/uL Hgb 14.4 (12.0-16.0) g/dL Hct 41.8 (36-46) % MCV 88.9 (80-100) fL MCH 30.7 (26-34) PG MCHC 34.5 (30-36) % RDW 12.3 (11.6-14.8) % Plt Count 371 (150-400) X10^3/uL Neut % (Auto) 57.7 (50-75) % Lymph % (Auto) 30.8 (25-40) % [place] % (Auto) 10.1 (3-14) % Eos % (Auto) 1.0 L (2-4) % Baso % (Auto) 0.4 (0-2) % Neut # (Auto) 4800 (1109-7711) /uL Lymph # (Auto) 2600 (1760-8317) /uL [place] # (Auto) 900 (0-900) /uL Eos # (Auto) 100 (0-450) /uL Baso # (Auto) 0 (0-100) /uL PT 11.7 (10.1-12.7) SECONDS INR 1.0 (0.9-1.3) APTT 33 (26.4-36.2) SECONDS Sodium 139 (137-145) mmol/L Potassium 4.0 (3.4-5.1) mmol/L Chloride 102 (98-107) mmol/L Carbon Dioxide 25 (22-32) mmol/L BUN 9 (7-17) mg/dL Creatinine 0.52 (0.52-1.04) mg/dL Estimated GFR > 60 (>60) mL/min BUN/Creatinine Ratio 17.3 (6-22) Glucose 146 H (70-100) mg/dL Calcium 9.7 (8.4-10.2) mg/dL Total Bilirubin 0.3 (0.2-1.3) mg/dL AST 47 H (14-36) IU/L ALT 45 H (<35) IU/L Alkaline Phosphatase 87 (38-126) U/L Troponin I < 0.012 (0.01-0.034) ng/mL Total Protein 8.7 H (6.3-8.2) g/dL Albumin 5.2 H (3.5-5.0) g/dL Globulin 3.5 (1.7-4.1) g/dL Albumin/Globulin Ratio 1.5 (1.0-2.8) // Range/Units 18:00 WBC (4.5-11.0) X10^3/uL RBC (4.0-5.2) X10^6/uL Hgb (12.0-16.0) g/dL Hct (36-46) % MCV (80-100) fL MCH (26-34) PG MCHC (30-36) % RDW (11.6-14.8) % Plt Count (150-400) X10^3/uL Neut % (Auto) (50-75) % Lymph % (Auto) (25-40) % [place] % (Auto) (3-14) % Eos % (Auto) (2-4) % Baso % (Auto) (0-2) % Neut # (Auto) (4221-2166) /uL Lymph # (Auto) (1252-9121) /uL Kitt[place] # (Auto) (0-900) /uL Eos # (Auto) (0-450) /uL Baso # (Auto) (0-100) /uL PT (10.1-12.7) SECONDS INR (0.9-1.3) APTT (26.4-36.2) SECONDS Sodium (137-145) mmol/L Potassium (3.4-5.1) mmol/L Chloride (98-107) mmol/L Carbon Dioxide (22-32) mmol/L BUN (7-17) mg/dL Creatinine (0.52-1.04) mg/dL Estimated GFR (>60) mL/min BUN/Creatinine Ratio (6-22) Glucose (70-100) mg/dL Calcium (8.4-10.2) mg/dL Total Bilirubin (0.2-1.3) mg/dL AST (14-36) IU/L ALT (<35) IU/L Alkaline Phosphatase (38-126) U/L Troponin I < 0.012 (0.01-0.034) ng/mL Total Protein (6.3-8.2) g/dL Albumin (3.5-5.0) g/dL Globulin (1.7-4.1) g/dL Albumin/Globulin Ratio (1.0-2.8) Imaging Data CT scan - chest: Radiologist's Impression: PROCEDURE:? CT ANGIO CHEST PE PROTOCOL ? INDICATIONS:? ?PE ? TECHNIQUE:? After the administration of intravenous contrast, 2 mm thick sections acquired from the pulmonary apices to the posterior costophrenic angles.? 3-dimensional maximum intensity projection (MIP) coronal and sagittal reformats were then acquired through the thorax.? For radiation dose reduction, the following was used:? automated exposure control, adjustment of mA and/or kV according to patient size.? ? COMPARISON:? None. ? FINDINGS:? Image quality:? Excellent.? ? Pulmonary arteries:? Pulmonary arteries are normal in size, and demonstrate no intraluminal filling defects to suggest central pulmonary embolism.? ? Lungs and pleura:? Linear atelectasis, inferior lingula of the left lung.? No pleural effusions or pneumothorax.? Central and peripheral airways are patent.? ? Mediastinum:? Heart size is normal, without pericardial effusion.? No mediastinal or hilar adenopathy.? Thoracic aorta is normal in caliber and enhancement.? Esophagus is normal in caliber, without hiatal hernia.? ? Bones and chest wall:? No suspicious bony lesions.? Ribs and thoracic spine appear intact throughout.? Extensive presumed thyroidectomy clips.? No axillary or supraclavicular adenopathy.? ? Abdomen:? Visualized upper abdominal solid organs appear normal in the early arterial phase of enhancement.? ? IMPRESSION:? ? 1. No evidence acute pulmonary emboli. ? 2. No evidence acute pulmonary process.? ? ? Dictated by: Nile Florez M.D. on 12/08/2021 at 16:51 ? ? Approved by: Nile Florez M.D. on 12/08/2021 at 16:54 ? Chest x-ray: Radiologist's Impression: PROCEDURE:? XR CHEST 2V ? INDICATIONS:? Chest pain with inspiration; ?PE ? TECHNIQUE:? 2 views of the chest were acquired.? ? COMPARISON:? [facility], , XR CHEST 1V, 02/10/2021, 16:02. ? FINDINGS:? ? Surgical changes and devices:? Surgical clips are noted in neck soft tissue unchanged from prior study. ? Lungs and pleura:? Lungs are clear.? No pleural effusions or pneumothorax.? ? Mediastinum:? Mediastinal contours are normal.? Heart size is normal.? ? Bones and chest wall:? No suspicious bony abnormalities.? Soft tissues appear unremarkable.? ? IMPRESSION:? No acute cardiopulmonary pathology. ? ? Dictated by: Darrell Peters M.D. on 12/08/2021 at 16:31 ? ? Approved by: Darrell Peters M.D. on 12/08/2021 at 16:31 ? ECG Data Interpretation: Normal sinus rhythm. No acute ST-T changes. No axis deviation. MDM Narrative Medical decision making narrative: 56-year-old female with past medical history DVT, hyperlipidemia, hypothyroidism, hypertension, status post ankle surgery sen by the [facility] due to concern for a pulmonary embolism. Concern for PE versus pneumonia versus musculoskeletal sprain/strain versus ACS. Will obtain chest x-ray, EKG, labs, troponin, CT PE, coags. Will treat pain with Tylenol. CT PE negative for PE. Labs within normal limits. Troponin normal. Will repeat troponin in 2 hours, reassess. Troponin x2 negative. Patient's symptoms are likely due to musculoskeletal sprain/strain. Discharged patient home with ED return precautions. Patient verbalized understanding. <Anisa Cantrell MD - Last Filed: 05/31/22 06:30> Lab Data Labs: Lab Results 12/08/21 12/08/21 12/08/21 Range/Units 16:00 16:00 16:00 WBC 8.4 (4.5-11.0) X10^3/uL RBC 4.70 (4.0-5.2) X10^6/uL Hgb 14.4 (12.0-16.0) g/dL Hct 41.8 (36-46) % MCV 88.9 (80-100) fL MCH 30.7 (26-34) PG MCHC 34.5 (30-36) % RDW 12.3 (11.6-14.8) % Plt Count 371 (150-400) X10^3/uL Neut % (Auto) 57.7 (50-75) % Lymph % (Auto) 30.8 (25-40) % [place] % (Auto) 10.1 (3-14) % Eos % (Auto) 1.0 L (2-4) % Baso % (Auto) 0.4 (0-2) % Neut # (Auto) 4800 (6898-4900) /uL Lymph # (Auto) 2600 (5702-6944) /uL [place] # (Auto) 900 (0-900) /uL Eos # (Auto) 100 (0-450) /uL Baso # (Auto) 0 (0-100) /uL PT 11.7 (10.1-12.7) SECONDS INR 1.0 (0.9-1.3) APTT 33 (26.4-36.2) SECONDS Sodium 139 (137-145) mmol/L Potassium 4.0 (3.4-5.1) mmol/L Chloride 102 (98-107) mmol/L Carbon Dioxide 25 (22-32) mmol/L BUN 9 (7-17) mg/dL Creatinine 0.52 (0.52-1.04) mg/dL Estimated GFR > 60 (>60) mL/min BUN/Creatinine Ratio 17.3 (6-22) Glucose 146 H (70-100) mg/dL Calcium 9.7 (8.4-10.2) mg/dL Total Bilirubin 0.3 (0.2-1.3) mg/dL AST 47 H (14-36) IU/L ALT 45 H (<35) IU/L Alkaline Phosphatase 87 (38-126) U/L Troponin I < 0.012 (0.01-0.034) ng/mL Total Protein 8.7 H (6.3-8.2) g/dL Albumin 5.2 H (3.5-5.0) g/dL Globulin 3.5 (1.7-4.1) g/dL Albumin/Globulin Ratio 1.5 (1.0-2.8) / Range/Units 18:00 WBC (4.5-11.0) X10^3/uL RBC (4.0-5.2) X10^6/uL Hgb (12.0-16.0) g/dL Hct (36-46) % MCV (80-100) fL MCH (26-34) PG MCHC (30-36) % RDW (11.6-14.8) % Plt Count (150-400) X10^3/uL Neut % (Auto) (50-75) % Lymph % (Auto) (25-40) % [place] % (Auto) (3-14) % Eos % (Auto) (2-4) % Baso % (Auto) (0-2) % Neut # (Auto) (6435-4531) /uL Lymph # (Auto) (4633-6453) /uL [place] # (Auto) (0-900) /uL Eos # (Auto) (0-450) /uL Baso # (Auto) (0-100) /uL PT (10.1-12.7) SECONDS INR (0.9-1.3) APTT (26.4-36.2) SECONDS Sodium (137-145) mmol/L Potassium (3.4-5.1) mmol/L Chloride (98-107) mmol/L Carbon Dioxide (22-32) mmol/L BUN (7-17) mg/dL Creatinine (0.52-1.04) mg/dL Estimated GFR (>60) mL/min BUN/Creatinine Ratio (6-22) Glucose (70-100) mg/dL Calcium (8.4-10.2) mg/dL Total Bilirubin (0.2-1.3) mg/dL AST (14-36) IU/L ALT (<35) IU/L Alkaline Phosphatase (38-126) U/L Troponin I < 0.012 (0.01-0.034) ng/mL Total Protein (6.3-8.2) g/dL Albumin (3.5-5.0) g/dL Globulin (1.7-4.1) g/dL Albumin/Globulin Ratio (1.0-2.8) Discharge Plan Departure Patient Disposition: Home Clinical Impression: Back pain Instructions: DI for Atypical Chest Pain Activity Restrictions/Additional Instructions: You were evaluated in the ED today for back pain with breathing. Your labs, troponin, CT were normal your CT did not show any evidence of a pulmonary embolism. Your symptoms could likely be due to a musculoskeletal sprain/strain. You may take Tylenol for your symptoms. Return to the ED if you have worsening symptoms, chest pain, shortness of breath. Prescriptions: No Action albuterol sulfate [Ventolin HFA] 90 mcg/actuation HFA aerosol inhaler 2 puff inhalation Q4-6H PRN (Reason: shortness of breath or wheezing) Qty: 8.5 2RF Rx Instructions: 1-2 puffs as needed Flovent HFA 110 mcg/actuation HFA aerosol inhaler 2 puff inhalation BID Qty: 12 2RF losartan 25 mg tablet 25 mg PO DAILY Qty: 90 2RF duloxetine [Cymbalta] 60 mg capsule,delayed release(DR/EC) 60 mg PO DAILY Qty: 90 2RF levothyroxine [Synthroid] 112 mcg tablet 112 mcg PO DAILY Qty: 90 2RF acetaminophen-codeine 300-30 mg tablet 1 tab PO Q6H PRN (Reason: pain) Qty: 20 0RF alprazolam [Xanax] 0.25 mg tablet 0.25 mg PO TID PRN (Reason: anxiety) Qty: 30 0RF aspirin 325 mg tablet 325 mg PO DAILY 0RF famotidine 20 mg tablet 20 mg PO BID 0RF Label Comments: TAKE ONE TABLET BY MOUTH TWICE DAILY mesalamine 1.2 gram tablet,delayed release (DR/EC) PO 0RF Label Comments: TAKE ONE TABLET BY MOUTH TWICE DAILY metoprolol succinate 100 mg tablet extended release 24 hr 200 mg PO DAILY Qty: 180 2RF cholecalciferol (vitamin D3) 125 mcg (5,000 unit) tablet,disintegrating PO 0RF ketorolac 10 mg tablet 10 mg PO Q6H PRN (Reason: pain) Qty: 14 0RF Referrals: Milind Naik MD [Primary Care Provider] - <Anisa Cantrell MD - Last Filed: 12/15/21 06:30> Cosign ED Attending Cosignature Attestation: I was immediately available in the department for consultation throughout this patient's visit. I agree with documentation as above. Anisa Cantrell MD
[2021-12-08] MEDS: ACETAMINOPHEN 325 MG TABLET 975 MG PO (17:36)
[2021-12-08 18:35] LABS: Troponin I < 0.012 ng/mL (0.01-0.034)
== END 2021-12-08 19:01 | disposition home or self-care (01) ==
PROVIDERS: Emergency Provider Student in an Organized Health Care Education/Training Program; PCP Family Medicine
DX: R07.89 Other chest pain (principal); M54.9 Dorsalgia, unspecified
CPT/HCPCS: 36415; 71046; 71275; 80053; 84484; 85025; 85610; 85730; 93005; 99284

== ENCOUNTER → 2021-12-30 13:26 | Outpatient (CLI) | payer OTHER, SELFPAY ==
--- NOTE | 2021-12-30 13:41 | DI.RAD.S_ITS ---
PROCEDURE: XR ANKLE RT MIN 3V INDICATIONS: Z47.1 M19.171 M12.571 TECHNIQUE: 3 views of the ankle were acquired. COMPARISON: [facility], CR, XR ANKLE 3+ VIEWS RIGHT, 06/16/2021, 8:25. FINDINGS: Bones: Interval placement of tibial talar joint prosthesis and medial fixation plate and associated fixation screws. Hardware is in expected positions. Rounded lucencies involve the distal tibia likely related to removed surgical hardware. Soft tissues: No tibiotalar joint effusion. Achilles tendon appears normal. IMPRESSION: 1. Interval placement of tibial talar joint prosthesis and medial fixation plate and screws which are in expected positions. Dictated by: Alex Greco [facility] Interpreted: Karin Grant MD on 12/31/2021 at 16:28 Transcribed by: CHRISTIANA on 12/31/2021 at 16:29 Approved by: Karin Grant M.D. on 01/12/2022 at 16:23
== END ==
PROVIDERS: PCP Family Medicine; Referring Provider Podiatrist Foot & Ankle Surgery; Visit Provider Podiatrist Foot & Ankle Surgery
DX: Z47.1 Aftercare following joint replacement surgery (principal); M19.171 Post-traumatic osteoarthritis, right ankle and foot
CPT/HCPCS: 73610

== ENCOUNTER → 2022-04-07 11:17 | Outpatient (CLI) | payer OTHER, SELFPAY ==
--- NOTE | 2022-04-07 11:19 | DI.MG.S_ITS ---
BILATERAL DIGITAL SCREENING MAMMOGRAM 3D/2D WITH CAD: 04/07/2022 CLINICAL: Routine screening. Comparison is made to exams dated: 10/16/2020 mammogram - [facility], 12/26/2017 mammogram, and 10/23/2016 mammogram - outside location. There are scattered areas of fibroglandular density in both breasts (category b / 25%-50% glandular tissue). Current study was also evaluated with a Computer Aided Detection (CAD) system. There are benign post operative findings in the right breast. No significant masses, calcifications, or other findings are seen in either breast. There has been no significant interval change. IMPRESSION: BENIGN There is no mammographic evidence of malignancy. A 1 year screening mammogram is recommended. Based on the Tyrer Cuzick model (a risk assessment model) the patient's lifetime risk is 7.3% and her 10 year risk is 2.2%. According to the ACR, ACS, and NCCN guidelines, an annual breast MRI exam along with mammogram is recommended if the patient's lifetime risk is 20% or greater. This exam was interpreted at Station ID: [id number]. NOTE: For mammograms, a report in lay terms will be sent to the patient. Approximately 15% of breast malignancies will not be visualized mammographically. In the management of a palpable breast mass, a negative mammogram must not discourage biopsy of a clinically suspicious lesion. Electronically Signed By: Abiel garvin/lul:04/07/2022 14:55:51 letter sent: Normal Exam ACR BI-RADS Category 2: Benign Finding(s) [id number]
== END ==
PROVIDERS: PCP Family Medicine; Referring Provider Family Medicine; Visit Provider Family Medicine
DX: Z12.31 Encounter for screening mammogram for malignant neoplasm of breast (principal)
CPT/HCPCS: 77063; 77067

== ENCOUNTER → 2022-04-12 12:27 | Outpatient (CLI) | payer OTHER, SELFPAY ==
--- NOTE | 2022-04-12 12:29 | DI.CT.S_ITS ---
PROCEDURE: CT LUNG LOW DOSE SCREENING INDICATIONS: 30 pack year smoking TECHNIQUE: Noncontrast 2.0-2.5 mm thick sections acquired from the pulmonary apices to the posterior costophrenic angles. 7 mm thick axial MIP, and 5 mm coronal and sagittal reformats were then acquired. A low radiation dose technique was utilized. COMPARISON: [facility], CT, CT ANGIO CHEST PE PROTOCOL, 12/08/2021, 16:28. FINDINGS: Image quality: Diagnostic, given the low radiation dose technique. Lungs and pleura: No effusions or consolidations. Linear opacities are present likely representing scarring and unchanged. No nodules. Mediastinum: Heart size is normal. No pericardial effusion. No mediastinal adenopathy by size criteria. Thoracic aorta and central pulmonary arteries are normal in size. Esophagus is normal in caliber. No hiatal hernia. Bones and chest wall: No suspicious bony lesions. No vertebral body compression fractures. No axillary or supraclavicular adenopathy by size criteria. Thyroid gland demonstrates multiple clips within the expected region most suggestive of removal. Abdomen: Visualized upper abdomen solid organs and bowel loops appear normal in the absence of contrast. IMPRESSION: No nodules are identified. Exam is stable compared to CT chest of 12/08/2021. LUNG-RADS 1; follow-up with annual CT screening exam. Dictated by: Bailey Conway M.D. on 04/12/2022 at 15:50 Approved by: Bailey Conway M.D. on 04/12/2022 at 15:54
== END ==
PROVIDERS: PCP Family Medicine; Referring Provider Family Medicine; Visit Provider Family Medicine
DX: Z13.83 Encounter for screening for respiratory disorder NEC (principal); Z87.891 Personal history of nicotine dependence
CPT/HCPCS: 71250

== ENCOUNTER → 2022-05-10 07:01 | Outpatient (CLI) | payer OTHER, SELFPAY ==
[2022-05-10 08:24] LABS: Add Manual Diff / Slide Review NO; Basophils Absolute Auto 100 /uL (0-100); Basophils Percent Auto 0.7 % (0-2); Eosinophils Absolute Auto 300 /uL (0-450); Eosinophils Percent Auto 4.3 % (2-4); Hematocrit 40.7 % (36-46); Lymphocytes Absolute Auto 3300 /uL (1100-4500); Mean Corpuscular HGB Conc 34.4 % (30-36); Mean Corpuscular Hemoglobin 31.5 PG (26-34); Mean Corpuscular Volume 91.5 fL (80-100); Monocytes Absolute Auto 700 /uL (0-900); Monocytes Percent Auto 9.9 % (3-14); Neutrophils Absolute Auto 2800 /uL (1500-7000); Neutrophils Percent Auto 39.1 % (50-75); Platelet Count 356 X10^3/uL (150-400); Red Blood Cell Count 4.45 X10^6/uL (4.0-5.2); Red Cell Distribution Width 12.6 % (11.6-14.8); White Blood Cell Count 7.2 X10^3/uL (4.5-11.0)
[2022-05-10 08:34] LABS: Hemoglobin A1C% w Est Avg Glu 5.6 % (4.0-6.0)
== END ==
PROVIDERS: PCP Family Medicine; Referring Provider Family Medicine; Visit Provider Family Medicine
DX: E89.0 Postprocedural hypothyroidism (principal); I10 Essential (primary) hypertension; K76.0 Fatty (change of) liver, not elsewhere classified
CPT/HCPCS: 36415; 83036; 85025

== ENCOUNTER → 2022-06-01 06:59 | Outpatient (CLI) | payer OTHER, SELFPAY ==
[2022-06-01 08:14] LABS: Alanine Aminotransferase 40 IU/L (<35); Albumin 4.3 g/dL (3.5-5.0); Albumin Globulin Ratio 1.3 (1.0-2.8); Alkaline Phosphatase 97 U/L (38-126); Aspartate Aminotransferase 40 IU/L (14-36); BUN Creatinine Ratio 19.6 (6-22); Bilirubin Total 0.2 mg/dL (0.2-1.3); Blood Urea Nitrogen 11 mg/dL (7-17); Calcium 9.3 mg/dL (8.4-10.2); Carbon Dioxide 24 mmol/L (22-32); Chloride 105 mmol/L (98-107); Cholesterol 199 mg/dL (140-199); Estimated Glomerular Filt Rate > 60 mL/min (>60); Globulin 3.2 g/dL (1.7-4.1); Glucose 101 mg/dL (70-100); HDL Cholesterol 67 mg/dL (40-60); HEMOLYSIS < 15 (0-50); LDL Cholesterol Calculated 81 mg/dL (<100); Potassium 4.3 mmol/L (3.4-5.1); Sodium 139 mmol/L (137-145); Total Protein 7.5 g/dL (6.3-8.2); Triglycerides 256 mg/dL (35-150)
[2022-06-01 08:40] LABS: TSH w/ Reflex to FT4 0.35 uIU/mL (0.47-4.68)
[2022-06-01 09:16] LABS: Free T4, Direct Thyroxine 0.92 ng/dL (0.78-2.19)
== END ==
PROVIDERS: PCP Family Medicine; Referring Provider Family Medicine; Visit Provider Family Medicine
DX: E78.2 Mixed hyperlipidemia (principal); E89.0 Postprocedural hypothyroidism; K76.0 Fatty (change of) liver, not elsewhere classified
CPT/HCPCS: 36415; 80053; 80061; 84439; 84443

== ENCOUNTER → 2023-02-15 07:46 | Outpatient (CLI) | payer OTHER, SELFPAY ==
[2023-02-15 09:04] LABS: Add Manual Diff / Slide Review NO; Basophils Absolute Auto 0 /uL (0-100); Eosinophils Absolute Auto 200 /uL (0-450); Eosinophils Percent Auto 4.7 % (2-4); Hematocrit 38.4 % (36-46); Hemoglobin 13.4 g/dL (12.0-16.0); Lymphocytes Absolute Auto 1900 /uL (1100-4500); Lymphocytes Percent Auto 40.7 % (25-40); Mean Corpuscular HGB Conc 34.7 % (30-36); Mean Corpuscular Hemoglobin 31.5 PG (26-34); Mean Corpuscular Volume 90.6 fL (80-100); Monocytes Absolute Auto 600 /uL (0-900); Monocytes Percent Auto 12.8 % (3-14); Neutrophils Absolute Auto 1900 /uL (1500-7000); Neutrophils Percent Auto 40.8 % (50-75); Platelet Count 312 X10^3/uL (150-400); Red Blood Cell Count 4.25 X10^6/uL (4.0-5.2); Red Cell Distribution Width 12.8 % (11.6-14.8); White Blood Cell Count 4.7 X10^3/uL (4.5-11.0)
[2023-02-15 10:07] LABS: Alanine Aminotransferase 80 IU/L (<35); Albumin 4.3 g/dL (3.5-5.0); Albumin Globulin Ratio 1.5 (1.0-2.8); Alkaline Phosphatase 78 U/L (38-126); Aspartate Aminotransferase 73 IU/L (14-36); BUN Creatinine Ratio 18.9 (6-22); Bilirubin Total 0.5 mg/dL (0.2-1.3); Blood Urea Nitrogen 10 mg/dL (7-17); Calcium 9.4 mg/dL (8.4-10.2); Carbon Dioxide 24 mmol/L (22-32); Chloride 99 mmol/L (98-107); Cholesterol 192 mg/dL (140-199); Estimated Glomerular Filt Rate > 60 mL/min (>60); Globulin 2.9 g/dL (1.7-4.1); Glucose 100 mg/dL (70-100); HDL Cholesterol 74 mg/dL (40-60); HEMOLYSIS < 15 (0-50); LDL Cholesterol Calculated 79 mg/dL (<100); Potassium 4.4 mmol/L (3.4-5.1); Sodium 133 mmol/L (137-145); Total Protein 7.2 g/dL (6.3-8.2); Triglycerides 197 mg/dL (35-150)
[2023-02-15 18:36] LABS: TSH w/ Reflex to FT4 0.81 uIU/mL (0.47-4.68)
[2023-02-17 05:52] LABS: x Labcorp Estim. Avg Glu (eAG) 123 mg/dL (.); x Labcorp Hemoglobin A1c 5.9 % (4.8-5.6)
== END ==
PROVIDERS: PCP Family Medicine; Referring Provider Family Medicine; Visit Provider Family Medicine
DX: E78.2 Mixed hyperlipidemia (principal); E89.0 Postprocedural hypothyroidism; I10 Essential (primary) hypertension; K76.0 Fatty (change of) liver, not elsewhere classified; K21.9 Gastro-esophageal reflux disease without esophagitis
CPT/HCPCS: 36415; 80053; 80061; 83036; 84443; 85025

== ENCOUNTER → 2023-02-17 10:58 | Outpatient (CLI) | payer OTHER, SELFPAY ==
[2023-02-17 17:13] LABS: Microalbumin Urine Random 3.7 mg/dL (0-1.6)
[2023-02-17 17:15] LABS: Creatinine Urine Random 82.6 mg/dL; Microalbumi Creatinin Ratio Ur 44.7 ug/mg CR (<30)
== END ==
PROVIDERS: PCP Family Medicine; Visit Provider Family Medicine
DX: I10 Essential (primary) hypertension (principal)
CPT/HCPCS: 82043; 82570

== ENCOUNTER → 2023-04-14 09:21 | Outpatient (CLI) | payer OTHER, SELFPAY ==
--- NOTE | 2023-04-14 09:22 | DI.MG.S_ITS ---
BILATERAL DIGITAL SCREENING MAMMOGRAM 3D/2D WITH CAD: 04/14/2023 CLINICAL: Routine screening. Comparison is made to exams dated: 04/07/2022 mammogram, 10/16/2020 mammogram - [facility], 12/26/2017 mammogram, and 10/23/2016 mammogram - outside location. There are scattered areas of fibroglandular density in both breasts (category b / 25%-50% glandular tissue). Current study was also evaluated with a Computer Aided Detection (CAD) system. There are benign post operative findings in the right breast. No significant masses, calcifications, or other findings are seen in either breast. There has been no significant interval change. IMPRESSION: BENIGN There is no mammographic evidence of malignancy. A 1 year screening mammogram is recommended. Based on the Tyrer Cuzick model (a risk assessment model) the patient's lifetime risk is 7.2% and her 10 year risk is 2.3%. According to the ACR, ACS, and NCCN guidelines, an annual breast MRI exam along with mammogram is recommended if the patient's lifetime risk is 20% or greater. This exam was interpreted at Station ID: [id number]. NOTE: For mammograms, a report in lay terms will be sent to the patient. Approximately 15% of breast malignancies will not be visualized mammographically. In the management of a palpable breast mass, a negative mammogram must not discourage biopsy of a clinically suspicious lesion. Electronically Signed By: Abiel garvin/lul:04/14/2023 11:32:10 letter sent: Normal Exam ACR BI-RADS Category 2: Benign Finding(s) 3342F
--- NOTE | 2023-04-14 09:22 | DI.CT.S_ITS ---
PROCEDURE: CT LUNG LOW DOSE SCREENING INDICATIONS: low dose chest CT for 30 pack year smoking hx TECHNIQUE: Noncontrast 2.0-2.5 mm thick sections acquired from the pulmonary apices to the posterior costophrenic angles. 7 mm thick axial MIP, and 5 mm coronal and sagittal reformats were then acquired. A low radiation dose technique was utilized. COMPARISON: [facility], CT, CT ANGIO CHEST PE PROTOCOL, 12/08/2021, 16:28. [facility], CT, CT LUNG LOW DOSE SCREENING, 04/12/2022, 12:41. FINDINGS: Image quality: Diagnostic, given the low radiation dose technique. Lungs and pleura: No pulmonary nodules are seen. No focal infiltrates are seen. No pneumothorax or pleural effusions are seen. Mediastinum: Heart size is normal. No pericardial effusion. No mediastinal adenopathy by size criteria. Thoracic aorta and central pulmonary arteries are normal in size. Esophagus is normal in caliber. No hiatal hernia. Bones and chest wall: No suspicious bony lesions. No vertebral body compression fractures. No axillary or supraclavicular adenopathy by size criteria. Thyroid gland has been removed. Abdomen: An enlarged, fatty liver can be seen. Visualized upper abdomen solid organs and bowel loops appear normal in the absence of contrast. IMPRESSION: No suspicious pulmonary nodule can be seen. Additional findings: Thyroidectomy Enlarged, fatty liver LUNG-RADS 1; Recommend annual screening for lung cancer with low dose CT, as long as the patient meets the screening criteria. Dictated by: Juan Miguel Chamberlain M.D. on 04/14/2023 at 9:55 Approved by: Juan Miguel Chamberlain M.D. on 04/14/2023 at 9:57
== END ==
PROVIDERS: PCP Family Medicine; Referring Provider Family Medicine; Visit Provider Family Medicine
DX: Z12.31 Encounter for screening mammogram for malignant neoplasm of breast (principal); Z87.891 Personal history of nicotine dependence; Z12.2 Encounter for screening for malignant neoplasm of respiratory organs; K76.0 Fatty (change of) liver, not elsewhere classified
CPT/HCPCS: 71271; 77063; 77067

== ENCOUNTER → 2023-05-06 16:37 | Outpatient (CLI) | payer OTHER, SELFPAY ==
--- NOTE | 2023-05-06 17:00 | DI.US.S_ITS ---
PROCEDURE: US PELVIC COMPLETE INDICATIONS: POSTMENOPAUSAL BLEEDING TECHNIQUE: Real-time scanning was performed of the pelvic organs, with image documentation. Additional endovaginal scanning was necessary due to incomplete visualization of the adnexal and endometrial structures by transabdominal scanning. COMPARISON: None. FINDINGS: Uterus: Uterus is anteverted and normal in size at 7.9 x 4.2 x 5.5 cm. The myometrium is heterogeneous. The endometrium measures 4 mm combined thickness. Some endometrial cysts are noted. Ovaries: The ovaries are not visualized. Other: No pathologic free abdominal or pelvic fluid. IMPRESSION: 1. 4 mm thickness endometrium with some cystic change. Hypertrophy and neoplasm cannot be excluded. Consider endometrial biopsy. We strive to produce accurate, complete, and clear reports of imaging services. To assist us in improving patient care, this report was composed using standard report templates and voice recognition software. Therefore, it may contain abnormal punctuation, insertions and/or omissions. Occasional wrong-word or sound-alike substitutions may occur. Though we review the report and make efforts to correct it, we do recommend that the report be read carefully in proper context to recognize any text inaccuracies. Dictated by: Noy Condon M.D. on 05/06/2023 at 17:18 Approved by: Noy Condon M.D. on 05/06/2023 at 17:20
== END ==
PROVIDERS: PCP Family Medicine; Referring Provider Obstetrics & Gynecology; Visit Provider Obstetrics & Gynecology
DX: N95.0 Postmenopausal bleeding (principal); R93.89 Abnormal findings on diagnostic imaging of other specified body structures
CPT/HCPCS: 76830; 76856

== ENCOUNTER → 2023-05-17 06:53 | Outpatient (CLI) | payer OTHER, SELFPAY ==
[2023-05-17 08:43] LABS: Follicle Stimulating Hormone 16.5 mIU/mL
[2023-05-17 08:59] LABS: Estradiol, Total 89.7 pg/mL
== END ==
PROVIDERS: Obstetrics & Gynecology; PCP Family Medicine; Referring Provider Family Medicine; Visit Provider Family Medicine
DX: N95.1 Menopausal and female climacteric states (principal)
CPT/HCPCS: 36415; 82670; 83001

== ENCOUNTER → 2023-05-31 09:54 | Outpatient (CLI) | payer OTHER, SELFPAY ==
[2023-06-01 04:18] LABS: Immunoglobulin A 386 mg/dL (87-352)
[2023-06-01 22:33] LABS: Tissue Transglutaminase IgA <2 U/mL (0-3); Tissue Transglutaminase IgG 5 U/mL (0-5)
== END ==
PROVIDERS: PCP Family Medicine; Referring Provider Internal Medicine Gastroenterology; Visit Provider Internal Medicine Gastroenterology
DX: R19.7 Diarrhea, unspecified (principal)
CPT/HCPCS: 36415; 82784; 83516

== ENCOUNTER → 2023-06-06 12:11 | Outpatient (CLI) | payer OTHER, SELFPAY ==
[2023-06-06 14:08] LABS: Clostridium Difficile Tox PCR Negative for C. diff (Negative)
== END ==
PROVIDERS: PCP Family Medicine; Referring Provider Internal Medicine Gastroenterology; Visit Provider Internal Medicine Gastroenterology
DX: R19.7 Diarrhea, unspecified (principal)
CPT/HCPCS: 87493

== ENCOUNTER 2023-06-27 09:10 | Day surgery (SDC) | payer OTHER, SELFPAY ==
--- NOTE | 2023-06-27 | PATH_ITS ---
[facility] Accession Number: [id number] No. of containers..01 Tissue . 01 Material submitted: . colon - RANDOM COLON . 01 Diagnosis: Random Colon, Biopsy: Colonic mucosa with no diagnostic abnormality. Negative for active, chronic, and microscopic colitis. Negative for dysplasia and malignancy. [facility] 07/06/2023 0812 Local . 01 Electronically signed: . Irina La MD, Pathologist NPI- [id number] . 01 Gross description: . RANDOM COLON: Received in formalin is multiple fragment(s) of johns, soft tissue measuring 0.7 x 0.3 x 0.1 cm in aggregate submitted entirely in 1 cassette(s) /AAY 06/28/2023 0533 Local . 01 Pathologist provided ICD-10: K76.0 . 01 CPT . 424406 Specimen Comment: A courtesy copy of this report has been sent to [phone] Performed at: 01 [facility] [address] [place] [address] [address], [place], [place] [id number] MD Quinn Milian MD Phone: [phone]
[2023-06-27] MEDS: MIDAZOLAM 2 MG/2 ML VIAL (09:41)
[2023-06-27] MEDS: ONDANSETRON 4 MG/2 ML INJ IV ×2 (09:45→10:22)
[2023-06-27] MEDS: LACTATED RINGERS 1,000 ML 100 ML IV (09:46)
[2023-06-27 09:55] VITALS: BP 148/70; PULSE 86; RESP 16; O2SAT 98; BMI 25.7
--- NOTE | 2023-06-27 10:00 | P.HP_ITS ---
History of Present Illness History of Present Illness Date Patient Seen: 06/27/23 Chief complaint: Dx Colonoscopy Narrative: Need for colorectal cancer screening. In addition known history of microscopic colitis with severe diarrhea which is now under control after 2 weeks of budesonide. Need for follow-up biopsies. [facility] Medical History History of third degree perineal laceration Hepatic steatosis Elevated liver enzymes Hyperlipidemia Fractures Chicken pox Last menstrual period (LMP) > 10 days ago Hyperthyroidism Hypertension Deep vein thrombosis (~06/2017) Cardiac arrhythmia Surgical History History of ankle surgery Status post right breast lumpectomy History of thyroidectomy History of tonsillectomy History of appendectomy Biceps tendonosis of right shoulder S/P rotator cuff repair Family History Father Hyperlipidemia Grandfather Cancer Social History Smoking Status: Former smoker Meds Home Medications and Allergies Home Medications Medication Instructions Recorded Confirmed Type omeprazole 20 mg capsule,delayed 20 mg PO DAILY 04/02/22 06/27/23 History release estradiol 10 mcg vaginal tablet 10 mcg vaginal 2XW #10 tabs 11/22/22 06/27/23 Rx (Vagifem) progesterone micronized 100 mg 100 mg PO .qhs #30 caps 11/22/22 06/27/23 Rx capsule (Prometrium) albuterol sulfate 90 mcg/actuation 2 puff inhalation Q4-6H PRN 01/05/23 06/27/23 Rx aerosol inhaler (Ventolin HFA) shortness of breath or wheezing #8.5 grams levothyroxine 112 mcg tablet 112 mcg PO DAILY #90 tabs 02/17/23 06/27/23 Rx (Synthroid) losartan 25 mg tablet 25 mg PO DAILY #90 tabs 02/17/23 06/27/23 Rx metoprolol succinate 100 mg 100 mg PO DAILY #90 tabs 02/17/23 06/27/23 Rx tablet,extended release 24 hr estradiol 0.075 mg/24 hr 1 patch transdermal 2XW #8 ea 02/28/23 06/27/23 Rx semiweekly transdermal patch (Vivelle-Dot) alprazolam 0.25 mg tablet 0.25 mg PO TID PRN anxiety #30 tabs 05/27/23 06/27/23 Rx duloxetine 60 mg capsule,delayed 60 mg PO DAILY #90 caps 05/27/23 06/27/23 Rx release (Cymbalta) amoxicillin 875 mg-potassium 1 tab PO BID 10 days #20 tabs 06/21/23 06/27/23 Rx clavulanate 125 mg tablet budesonide 3 mg 3 mg PO DAILY 06/21/23 06/27/23 History capsule,delayed,extended release meloxicam 15 mg tablet 15 mg PO DAILY 06/21/23 06/27/23 History tramadol 50 mg tablet 50 mg PO Q6H PRN Pain (Scale Score 06/21/23 06/27/23 History 4-6) Allergies Allergy/AdvReac Type Severity Reaction Status Date / Time hydrochlorothiazide Allergy Intermediate wheezing Verified 06/27/23 09:47 and backpain Exam Narrative Exam Narrative: Oropharynx free of lesions Chest clear to auscultation percussion Cardiac exam reveals no S3 or murmur Assessment & Plan Assessment & Plan narrative: Need for colorectal cancer screening. Risks, benefits, alternatives have been explained Personal history of microscopic colitis under good control over the short term biopsies to be taken to rule out persistent findings.
--- NOTE | 2023-06-27 10:02 | PM.OP.COLON ---
Operative Date/Time/Diagnoses Date of procedure: 06/27/23 Pre-op diagnosis: See indication and findings Procedure & Clinicians Study performed: Colonoscopy Indications: Need for colorectal cancer screening. Need to assess for continued underlying microscopic colitis Surgeon: Shira Barker Procedure Notes Procedure in detail: After informed consent was obtained the patient was placed in left lateral decubitus position. The video colonoscope was introduced the rectum slowly advanced to the cecum. Preparation was good. On slow withdrawal mucosa was carefully examined. The scope was removed. The patient tolerated procedure well. Blood loss none Complications none Sedation mac Findings 1. Unable to easily enter IC valve 2. Completely normal colonoscopy to cecum. Random biopsies taken to rule out continued microscopic colitis Will be in touch by telephone regarding her biopsies
[2023-06-27 10:32] VITALS: BP 110/71; PULSE 87; RESP 19; TEMP 36.7; O2SAT 98
[2023-06-27 10:36] VITALS: BP 132/74; PULSE 88; RESP 21; O2SAT 100
[2023-06-27 10:40] VITALS: BP 135/79; PULSE 82; RESP 14; TEMP 36.2; O2SAT 100
[2023-06-27 10:45] VITALS: BP 139/73; PULSE 74; RESP 22; O2SAT 100
== END 2023-06-27 10:57 | disposition home or self-care (01) ==
PROVIDERS: PCP Family Medicine; Referring Provider Internal Medicine Gastroenterology; Visit Provider Internal Medicine Gastroenterology
PROC: 0DJD8ZZ Inspection of Lower Intestinal Tract, Via Natural or Artificial Opening Endoscopic (ICD-10-PCS; CPT 45378; principal; 2023-06-27 10:30)
DX: Z12.11 Encounter for screening for malignant neoplasm of colon (principal); Z80.0 Family history of malignant neoplasm of digestive organs
CPT/HCPCS: 45380; J2250; J2405

== ENCOUNTER → 2023-08-04 14:59 | Outpatient (CLI) | payer OTHER, SELFPAY ==
[2023-08-04 16:57] LABS: Add Manual Diff / Slide Review NO; Basophils Absolute Auto 100 /uL (0-100); Basophils Percent Auto 0.6 % (0-2); Eosinophils Absolute Auto 0 /uL (0-450); Hematocrit 40.4 % (36-46); Hemoglobin 13.9 g/dL (12.0-16.0); Lymphocytes Absolute Auto 2400 /uL (1100-4500); Mean Corpuscular HGB Conc 34.4 % (30-36); Mean Corpuscular Hemoglobin 31.4 PG (26-34); Mean Corpuscular Volume 91.4 fL (80-100); Monocytes Absolute Auto 1200 /uL (0-900); Monocytes Percent Auto 9.5 % (3-14); Neutrophils Absolute Auto 8500 /uL (1500-7000); Neutrophils Percent Auto 69.9 % (50-75); Platelet Count 398 X10^3/uL (150-400); Red Blood Cell Count 4.42 X10^6/uL (4.0-5.2); Red Cell Distribution Width 13.1 % (11.6-14.8); White Blood Cell Count 12.1 X10^3/uL (4.5-11.0)
[2023-08-04 17:10] LABS: Hemoglobin A1C% w Est Avg Glu 5.9 % (4.0-6.0)
[2023-08-04 17:30] LABS: Blood Urea Nitrogen 12 mg/dL (7-17); Carbon Dioxide 27 mmol/L (22-32); Chloride 98 mmol/L (98-107); HEMOLYSIS < 15 (0-50); Potassium 3.9 mmol/L (3.4-5.1); Sodium 134 mmol/L (137-145)
[2023-08-04 17:31] LABS: Alanine Aminotransferase 31 IU/L (<35); Albumin 4.3 g/dL (3.5-5.0); Albumin Globulin Ratio 1.3 (1.0-2.8); Alkaline Phosphatase 71 U/L (38-126); Aspartate Aminotransferase 37 IU/L (14-36); Bilirubin Total 0.5 mg/dL (0.2-1.3); C-Reactive Protein Quant 0.6 mg/dL (<1.0); Calcium 9.8 mg/dL (8.4-10.2); Erythrocyte Sedimentation Rate 8 MM/HR (0-20); Estimated Glomerular Filt Rate > 60 mL/min (>60); Globulin 3.2 g/dL (1.7-4.1); Glucose 100 mg/dL (70-100); Total Protein 7.5 g/dL (6.3-8.2)
[2023-08-04 17:45] LABS: Vitamin D 25 Hydroxy (D3) 41.8 ng/mL (30.0-100.0)
== END ==
LOC: LAB 15:02
PROVIDERS: PCP Family Medicine; Referring Provider Podiatrist Foot & Ankle Surgery; Visit Provider Podiatrist Foot & Ankle Surgery
DX: Z01.812 Encounter for preprocedural laboratory examination (principal); E55.9 Vitamin D deficiency, unspecified
CPT/HCPCS: 36415; 80053; 82306; 83036; 85025; 85651; 86140; 93005; 93010

== ENCOUNTER → 2023-12-29 15:16 | Outpatient (CLI) | payer OTHER, SELFPAY ==
--- NOTE | 2023-12-29 15:27 | DI.RAD.S_ITS ---
PROCEDURE: XR FOOT RT MIN 3V INDICATIONS: R FOOT PAIN TECHNIQUE: 3 views of the foot were acquired. COMPARISON: None. FINDINGS: Bones: No fractures or dislocations. No suspicious bony lesions extensive hardware is partially visualized at the mortise joint and appears grossly intact.. Soft tissues: No tibiotalar joint effusion. Achilles tendon appears normal. IMPRESSION: No acute bony abnormality. If pain persists, followup imaging in 5-7 days is recommended to exclude occult fracture. Dictated by: Noy Condon M.D. on 12/29/2023 at 17:43 Approved by: Noy Condon M.D. on 12/29/2023 at 17:43
== END ==
PROVIDERS: PCP Family Medicine; Referring Provider Podiatrist Foot & Ankle Surgery; Visit Provider Podiatrist Foot & Ankle Surgery
DX: M79.671 Pain in right foot (principal)
CPT/HCPCS: 73630

== ENCOUNTER → 2024-03-17 07:32 | Outpatient (CLI) | payer OTHER, SELFPAY ==
[2024-03-17 08:30] LABS: Add Manual Diff / Slide Review NO; Basophils Absolute Auto 100 /uL (0-100); Basophils Percent Auto 0.7 % (0-2); Eosinophils Absolute Auto 100 /uL (0-450); Eosinophils Percent Auto 1.8 % (2-4); Hematocrit 39.8 % (36-46); Hemoglobin 13.5 g/dL (12.0-16.0); Lymphocytes Absolute Auto 3400 /uL (1100-4500); Lymphocytes Percent Auto 41.5 % (25-40); Mean Corpuscular HGB Conc 33.8 % (30-36); Mean Corpuscular Hemoglobin 30.5 PG (26-34); Mean Corpuscular Volume 90.1 fL (80-100); Monocytes Absolute Auto 1000 /uL (0-900); Monocytes Percent Auto 12.4 % (3-14); Neutrophils Absolute Auto 3600 /uL (1500-7000); Neutrophils Percent Auto 43.6 % (50-75); Platelet Count 330 X10^3/uL (150-400); Red Blood Cell Count 4.42 X10^6/uL (4.0-5.2); Red Cell Distribution Width 12.2 % (11.6-14.8); White Blood Cell Count 8.2 X10^3/uL (4.5-11.0)
[2024-03-17 08:41] LABS: Alanine Aminotransferase 23 IU/L (<35); Albumin Globulin Ratio 1.4 (1.0-2.8); Alkaline Phosphatase 63 U/L (38-126); Aspartate Aminotransferase 25 IU/L (14-36); BUN Creatinine Ratio 17.2 (6-22); Bilirubin Total 0.7 mg/dL (0.2-1.3); Blood Urea Nitrogen 11 mg/dL (7-17); Calcium 9.5 mg/dL (8.4-10.2); Carbon Dioxide 31 mmol/L (22-32); Chloride 101 mmol/L (98-107); Estimated Glomerular Filt Rate > 60 mL/min (>60); Globulin 2.8 g/dL (1.7-4.1); Glucose 100 mg/dL (70-100); HEMOLYSIS < 15 (0-50); Potassium 4.4 mmol/L (3.4-5.1); Sodium 137 mmol/L (137-145); Total Protein 6.8 g/dL (6.3-8.2)
[2024-03-17 08:43] LABS: Creatinine Urine Random 145.37 mg/dL
[2024-03-17 08:50] LABS: Microalbumin Urine Random 1.3 mg/dL (0-1.6)
== END ==
PROVIDERS: PCP Family Medicine; Referring Provider Family Medicine; Visit Provider Family Medicine
DX: K76.0 Fatty (change of) liver, not elsewhere classified (principal); R74.8 Abnormal levels of other serum enzymes
CPT/HCPCS: 36415; 80053; 82043; 82570; 85025

== ENCOUNTER → 2024-05-23 15:43 | Outpatient (CLI) | payer OTHER, SELFPAY | PROVIDERS: PCP Family Medicine; Referring Provider Internal Medicine; Visit Provider Internal Medicine | DX: Z23 Encounter for immunization (principal) | CPT/HCPCS: 90471; 90656 ==

== ENCOUNTER → 2024-07-20 07:21 | Outpatient (CLI) | payer OTHER, SELFPAY ==
[2024-07-20 08:17] LABS: Add Manual Diff / Slide Review NO; Basophils Absolute Auto 0 /uL (0-100); Basophils Percent Auto 0.5 % (0-2); Eosinophils Absolute Auto 100 /uL (0-450); Eosinophils Percent Auto 0.7 % (2-4); Hematocrit 43.3 % (36-46); Hemoglobin 14.6 g/dL (12.0-16.0); Lymphocytes Absolute Auto 2500 /uL (1100-4500); Lymphocytes Percent Auto 26.7 % (25-40); Mean Corpuscular HGB Conc 33.7 % (30-36); Mean Corpuscular Hemoglobin 30.2 PG (26-34); Mean Corpuscular Volume 89.6 fL (80-100); Monocytes Absolute Auto 1100 /uL (0-900); Monocytes Percent Auto 11.8 % (3-14); Neutrophils Absolute Auto 5600 /uL (1500-7000); Neutrophils Percent Auto 60.3 % (50-75); Platelet Count 430 X10^3/uL (150-400); Red Blood Cell Count 4.83 X10^6/uL (4.0-5.2); Red Cell Distribution Width 13.5 % (11.6-14.8); White Blood Cell Count 9.3 X10^3/uL (4.5-11.0)
[2024-07-20 08:25] LABS: Hemoglobin A1C% w Est Avg Glu 5.2 % (4.0-6.0)
[2024-07-20 08:37] LABS: Alanine Aminotransferase 22 IU/L (<35); Albumin 4.3 g/dL (3.5-5.0); Albumin Globulin Ratio 1.7 (1.0-2.8); Alkaline Phosphatase 80 U/L (38-126); Aspartate Aminotransferase 25 IU/L (14-36); BUN Creatinine Ratio 18.6 (6-22); Bilirubin Total 0.5 mg/dL (0.2-1.3); Blood Urea Nitrogen 11 mg/dL (7-17); Calcium 9.8 mg/dL (8.4-10.2); Carbon Dioxide 27 mmol/L (22-32); Chloride 101 mmol/L (98-107); Cholesterol 200 mg/dL (140-199); Estimated Glomerular Filt Rate > 60 mL/min (>60); Globulin 2.5 g/dL (1.7-4.1); Glucose 108 mg/dL (70-100); HDL Cholesterol 70 mg/dL (40-60); HEMOLYSIS < 15 (0-50); LDL Cholesterol Calculated 101 mg/dL (<100); Potassium 4.2 mmol/L (3.4-5.1); Sodium 136 mmol/L (137-145); Total Protein 6.8 g/dL (6.3-8.2); Triglycerides 143 mg/dL (35-150)
[2024-07-20 08:49] LABS: Free T3, Triiodothyronine Free 4.06 pg/mL (2.77-5.27)
[2024-07-20 09:03] LABS: Thyroid Stimulating Hormone < 0.015 uIU/mL (0.47-4.68)
[2024-07-21 07:40] LABS: Sex Hormone Binding Globulin 44.7 nmol/L (17.3-125.0); Thyroid Peroxidase Antibodies 13 IU/mL (0-34)
== END ==
PROVIDERS: PCP Family Medicine; Referring Provider Specialist; Visit Provider Specialist
DX: Z51.81 Encounter for therapeutic drug level monitoring (principal); E03.9 Hypothyroidism, unspecified; N95.1 Menopausal and female climacteric states; R73.09 Other abnormal glucose
CPT/HCPCS: 36415; 80053; 80061; 83036; 84270; 84402; 84403; 84436; 84443; 84481; 85025; 86376

== ENCOUNTER 2024-09-14 08:51 | Day surgery (SDC) | payer OTHER, SELFPAY ==
[2024-08-29 08:07] VITALS: BMI 23.5
[2024-09-14] VITALS (8 sets, daily range): BP systolic 100–136; BP diastolic 51–78; PULSE 73–91; RESP 12–18; TEMP 36.2–36.6; O2SAT 97–100
--- NOTE | 2024-09-14 | PATH_ITS ---
[facility] Accession Number: [id number] No. of containers..02 Tissue . 01 Material submitted: . PART A: endocervix - ENDOCERVICAL CURETTINGS PART B: endometrium - ENDOMETRIAL CURETTINGS . 01 Diagnosis: A. ENDOCERVIX, CURETTAGE: Polypoid fragment of inflamed endocervical and squamous metaplastic mucosa. Negative for intraepithelial lesions and invasive carcinoma. . B. ENDOMETRIUM, CURETTAGE: Inactive to atrophic endometrium with focal polypoid features. Negative for endometrial intraepithelial neoplasia and malignancy. [facility] 09/18/2024 1407 Local . 01 Electronically signed: . Maya Duke DO, Pathologist NPI- [id number] . 01 Gross description: . Part A: ENDOCERVICAL CURETTINGS: Received in formalin is 1 fragment(s) of TISSUE/MUCOID measuring 2.0 x 2.0 x 0.3 cm in aggregate submitted entirely in 2 cassette(s) Part B: ENDOMETRIAL CURETTINGS: Received in formalin are minute fragments of mucoid and hemorrhagic material measuring 2.0 x 2.0 x 0.3 cm in aggregate. Submitted in toto in 1 cassette. /AJAY 09/15/2024 0057 Local . 01 Pathologist provided ICD-10: N95.0 . 01 CPT . 354353, 159708 Specimen Comment: A courtesy copy of this report has been sent to [phone] Performed at: [address] [id number] MD Quinn Milian MD Phone: [phone]
[2024-09-14] MEDS: ACETAMINOPHEN 325 MG TABLET 975 MG PO (09:04)
[2024-09-14] MEDS: LACTATED RINGERS 1,000 ML 42 ML IV (09:05)
--- NOTE | 2024-09-14 10:10 | PM.PREOP ---
Pre-operative Note COVID-19 COVID-19 status: Not tested Interval Note History & Physical reviewed/Exam performed by Physician: Yes Changes to H&P: No
--- NOTE | 2024-09-14 10:48 | SUR.OPER ---
Lithotomy on padded OR bed, head on pillow, arms secured on padded arm boards at <90 degrees abduction. Legs secured in padded yellow fins stirrups.
--- NOTE | 2024-09-14 11:12 | PM.GYNOP.1 ---
Operative Date/Time/Diagnoses Date of procedure: 09/14/24 Time of procedure: 10:30 Pre-op diagnosis: Postmenopausal bleeding Post-op diagnosis: same Procedure & Clinicians Procedure: Procedures Operation Date: 09/14/24 10:15 Actual Procedure Side Surgeon p Hysteroscopy D&C with polypectomy Gautam Keller MD Indications: Danyelle is a 59-year-old , LMP at age 54 who has had intermittent post menopausal bleeding since her LMP. Endometrial sampling has been negative. Patient is undergoing hysteroscopy and D&C at this time. Request for performance of endometrial ablation was denied by her insurance company. She presents today for her scheduled surgery. Surgeon: Gautam Keller Anesthesia Type: General Operative Notes Findings: There is a 0.5 cm endocervical polyp noted. The endometrial cavity itself does not have any focal abnormalities and is normal in size and shape. The mucosa generally is atrophic and thin. Closure Type: not applicable Specimen(s): endometrial curettings and other (Endocervical curettage with endocervical polyp) Estimated blood loss (mL): 25 Blood products transfused: none Procedure in detail: With the patient under general LMA in the modified dorsal lithotomy position, the perineum, vagina, and lower abdomen were prepped and draped in the usual fashion for hysteroscopy with endometrial ablation. A pre-surgical safety time-out was then taken in accordance with [facility] OR protocols. A bivalve speculum was inserted in the vagina and the cervix visualized. The anterior lip of the cervix was grasped with a single-tooth tenaculum and the endocervical canal was then dilated to 6 mm diameter. Hysteroscope was placed through the endocervical canal into the endometrial cavity and the cavity was visualized. There were no localized abnormalities within the endometrial cavity and the endometrium itself was unremarkable. Both tubal ostia were visualized. The hysteroscope was then withdrawn and a fractional dilation and curettage was accomplished with separate pathologic specimen submitted for the endometrial and endocervical curettings. The endocervical polyp was removed with polyp forceps and submitted along with the endocervical curettings. The tenaculum was then removed from the anterior lip of the cervix and no bleeding was encountered. The speculum was then removed from the vagina and the patient awakened from anesthesia. She was then transferred to the PACU for a period of observation and recovery having tolerated the procedure well. Complications: none Post-operative Condition: stable Disposition: PACU Plan for aftercare: Routine post-op care.
[2024-09-14] MEDS: OXYCODONE IR 5 MG TABLET PO ×2 (11:25→11:58)
== END 2024-09-14 12:05 | disposition home or self-care (01) ==
PROVIDERS: PCP Family Medicine; Referring Provider Obstetrics & Gynecology; Visit Provider Obstetrics & Gynecology
PROC: 0UDB8ZZ Extraction of Endometrium, Via Natural or Artificial Opening Endoscopic (ICD-10-PCS; CPT 58558; principal; 2024-09-14 10:15)
DX: N95.0 Postmenopausal bleeding (principal); Z87.891 Personal history of nicotine dependence; N84.1 Polyp of cervix uteri
CPT/HCPCS: 58558; J1100; J1885; J2250; J2405; J2704; J3010

== ENCOUNTER → 2024-10-26 11:56 | Outpatient (CLI) | payer OTHER, SELFPAY ==
[2024-10-26 12:51] LABS: Add Manual Diff / Slide Review NO; Basophils Absolute Auto 100 /uL (0-100); Basophils Percent Auto 0.7 % (0-2); Eosinophils Absolute Auto 100 /uL (0-450); Eosinophils Percent Auto 1.4 % (2-4); Hematocrit 40.9 % (36-46); Lymphocytes Absolute Auto 2600 /uL (1100-4500); Mean Corpuscular HGB Conc 34.2 % (30-36); Mean Corpuscular Hemoglobin 31.6 PG (26-34); Mean Corpuscular Volume 92.4 fL (80-100); Monocytes Absolute Auto 700 /uL (0-900); Monocytes Percent Auto 9.1 % (3-14); Neutrophils Absolute Auto 4100 /uL (1500-7000); Neutrophils Percent Auto 54.8 % (50-75); Platelet Count 368 X10^3/uL (150-400); Red Blood Cell Count 4.42 X10^6/uL (4.0-5.2); Red Cell Distribution Width 13.2 % (11.6-14.8); White Blood Cell Count 7.5 X10^3/uL (4.5-11.0)
[2024-10-26 13:16] LABS: Alanine Aminotransferase 22 IU/L (<35); Albumin 4.4 g/dL (3.5-5.0); Albumin Globulin Ratio 1.8 (1.0-2.8); Alkaline Phosphatase 74 U/L (38-126); Aspartate Aminotransferase 28 IU/L (14-36); Bilirubin Total 0.5 mg/dL (0.2-1.3); Blood Urea Nitrogen 11 mg/dL (7-17); Calcium 9.6 mg/dL (8.4-10.2); Carbon Dioxide 28 mmol/L (22-32); Chloride 100 mmol/L (98-107); Cholesterol 178 mg/dL (140-199); Estimated Glomerular Filt Rate > 60 mL/min (>60); Globulin 2.5 g/dL (1.7-4.1); Glucose 109 mg/dL (70-100); HDL Cholesterol 67 mg/dL (40-60); HEMOLYSIS < 15 (0-50); LDL Cholesterol Calculated 73 mg/dL (<100); Potassium 4.2 mmol/L (3.4-5.1); Sodium 136 mmol/L (137-145); Total Protein 6.9 g/dL (6.3-8.2); Triglycerides 190 mg/dL (35-150)
[2024-10-26 13:44] LABS: Thyroid Stimulating Hormone < 0.015 uIU/mL (0.47-4.68)
[2024-10-26 14:13] LABS: Free T3, Triiodothyronine Free 4.47 pg/mL (2.77-5.27)
[2024-10-26 17:07] LABS: Follicle Stimulating Hormone 9.22 mIU/mL; Progesterone, Total 3.76 ng/mL
[2024-10-26 17:22] LABS: Estradiol, Total 70.2 pg/mL
== END ==
PROVIDERS: PCP Family Medicine; Referring Provider Family Medicine; Visit Provider Specialist
DX: Z51.81 Encounter for therapeutic drug level monitoring (principal); N95.1 Menopausal and female climacteric states; E03.9 Hypothyroidism, unspecified; R73.03 Prediabetes
CPT/HCPCS: 36415; 80053; 80061; 82670; 83001; 84144; 84270; 84402; 84443; 84481; 85025

== ENCOUNTER → 2025-01-08 15:48 | Outpatient (CLI) | payer OTHER, SELFPAY ==
--- NOTE | 2025-01-08 15:49 | DI.MG.S_ITS ---
MM screening mammo BI: 01/08/2025. BI-RADS: 2 CLINICAL: 59-year old female for bilateral screening mammogram. Tyrer-Cuzick lifetime risk of 6.2%. No personal or first-degree family history of breast cancer. The patient had a prior right breast biopsy. PRIOR EXAMS 04/14/2023, 04/07/2022, 10/16/2020. MAMMOGRAPHY TECHNIQUE: 2D and 3D (tomosynthesis) digital mammographic views obtained, with additional images as needed for full coverage. Current study was also evaluated with a Computer Aided Detection (CAD) system. DENSITY B. There are scattered areas of fibroglandular density. MAMMOGRAPHY FINDINGS Right: Benign-appearing post-surgical changes noted on the right. There are no suspicious masses, calcifications, or other findings in the breast. Left: No suspicious mass, asymmetry, microcalcification, or other abnormality seen. IMPRESSION: Right * No evidence of malignancy with benign findings. Left * No evidence of malignancy. RECOMMENDATIONS Bilateral * Annual screening mammography. OVERALL ASSESSMENT CATEGORY BI-RADS-2: Benign. The [employer] recommends annual screening mammography beginning at age 40 for women with average risk of breast cancer. ELECTRONICALLY SIGNED: Jesse Arenas M.D. on 01/09/2025 at 06:55:28 AM PT Interpreting Station ID: [id number]
== END ==
PROVIDERS: PCP Family Medicine; Referring Provider Family Medicine; Visit Provider Family Medicine
DX: Z12.31 Encounter for screening mammogram for malignant neoplasm of breast (principal)
CPT/HCPCS: 77063; 77067

== ENCOUNTER → 2025-04-22 10:18 | Outpatient (CLI) | payer OTHER, SELFPAY ==
[2025-04-22 10:54] LABS: Alanine Aminotransferase 27 IU/L (<35); Albumin 4.6 g/dL (3.5-5.0); Albumin Globulin Ratio 1.5 (1.0-2.8); Alkaline Phosphatase 68 U/L (38-126); Blood Urea Nitrogen 11 mg/dL (7-17); Calcium 9.2 mg/dL (8.4-10.2); Carbon Dioxide 28 mmol/L (22-32); Chloride 102 mmol/L (98-107); Estimated Glomerular Filt Rate > 60 mL/min (>60); Globulin 3.0 g/dL (1.7-4.1); Glucose 90 mg/dL (70-99); HEMOLYSIS < 15 (0-50); Potassium 4.6 mmol/L (3.4-5.1); Sodium 137 mmol/L (137-145); Total Protein 7.6 g/dL (6.3-8.2)
[2025-04-22 10:55] LABS: Cholesterol 205 mg/dL (140-199); HDL Cholesterol 68 mg/dL (40-60); Triglycerides 179 mg/dL (35-150)
[2025-04-22 11:05] LABS: Add Manual Diff / Slide Review NO; Hematocrit 42.8 % (36-46); Hemoglobin 14.7 g/dL (12.0-16.0); Lymphocytes Absolute Auto 2800 /uL (1100-4500); Mean Corpuscular HGB Conc 34.3 % (30-36); Mean Corpuscular Hemoglobin 31.7 PG (26-34); Mean Corpuscular Volume 92.3 fL (80-100); Platelet Count 399 X10^3/uL (150-400)
[2025-04-22 11:18] LABS: Progesterone, Total 0.59 ng/mL
[2025-04-22 11:28] LABS: TSH w/ Reflex to FT4 0.65 uIU/mL (0.47-4.68)
[2025-04-22 11:34] LABS: Estradiol, Total 101.1 pg/mL
[2025-04-22 12:24] LABS: Microalbumi Creatinin Ratio Ur 11.0 ug/mg CR (<30)
== END ==
PROVIDERS: Family Provider Family Medicine; PCP Family Medicine; Referring Provider Family Medicine; Visit Provider Specialist
DX: I10 Essential (primary) hypertension (principal); N95.9 Unspecified menopausal and perimenopausal disorder; R53.83 Other fatigue; R73.09 Other abnormal glucose; R68.82 Decreased libido; Z51.81 Encounter for therapeutic drug level monitoring; N95.1 Menopausal and female climacteric states; Z79.890 Hormone replacement therapy; E89.0 Postprocedural hypothyroidism; R73.9 Hyperglycemia, unspecified; E78.2 Mixed hyperlipidemia; K76.0 Fatty (change of) liver, not elsewhere classified; E66.3 Overweight; R74.8 Abnormal levels of other serum enzymes
CPT/HCPCS: 36415; 80053; 80061; 82043; 82570; 82670; 84144; 84403; 84443; 85025

== ENCOUNTER → 2025-05-03 07:15 | Outpatient (CLI) | payer OTHER, SELFPAY | PROVIDERS: Family Provider Family Medicine; PCP Family Medicine; Referring Provider Registered Nurse; Visit Provider Registered Nurse | DX: L03.90 Cellulitis, unspecified (principal) | CPT/HCPCS: 36415; 85651; 86038; 86140 ==

== ENCOUNTER 2025-05-20 11:30 | Outpatient (RCR) | payer OTHER, SELFPAY ==
--- NOTE | 2025-04-22 10:36 | ST.OPIE ---
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 Ion Guan, ENT Reason for Referral Hoarseness, chronic throat clearing/cough Setting Setting Outpatient Care Patient History Patient History Danyelle Magana is a 59-year-old female, referred for speech therapy evaluation by Dr. Guan due to concerns regarding voice. Pt presented to ENT Ion Guan MD, on 03/19/25 reporting recurrent and persistent hoarseness. Pt underwent an ankle surgery in 2021 and was intubated. She has been experiencing hoarseness since. Voice seems to ?come and go? and pt tries to clear her throat often, though with minimal improvement to vocal quality. Pt reported she has stopped long- term PPI use with increased GERD symptoms. She was prescribed alginate, but is not taking it consistently yet. Pt also reported occasional difficulty swallowing pills and sensation of lump in her throat. Results of assessment performed on that date indicated symptoms consistent with dysphonia and GERD. Flexible laryngoscopy showed no generalized erythema or thick phlegm. Voice therapy was recommended to target dysphonia and pt was provided with GERD education. PMHx significant for arthritis, hypertension, and hypothyroidism. Otherwise, her medical history is unremarkable. She has smoking history of about 4 years ago with occasional intake of caffeine/alcohol. 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 This also occurs when she feels increasingly stressed/anxious. Hoarseness also occasionally occurs at home and in the evenings when tired, though less often. Pt endorsed tightness in the anterior laryngeal area and occasionally becomes short of breath when speaking for prolonged periods of time. She stated the hoarseness seems to fluctuate, with some days being perfectly clear, and others being hoarser. 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 Oral-Motor Eval Yes Completed Oral-Motor CRANIAL NERVE EXAM Assessment Assessment CN V (Trigeminal): intact b/l CN VII (Facial): intact b/l CN IX/X (Glossopharyngeal/Vagus): Unable to exclude CN X branch involvement 2/2 dysphonia CN XII (Hypoglossal): intact b/l FEATURES OF NEUROMUSCULAR FUNCTION Muscle Strength: Demonstrated adequate labial and lingual strength during resistance tasks Speed of Movement: At the conversation level, speed of movement is judged to be adequate. Accuracy of Movement: In regards to speech production, accuracy is WNL. Range of Motion: ROM within normal limits. Muscle Tone: Muscle tone of all speech related musculature appeared adequate Subjective Subjective Pt arrived to the session on time. She was engaged and motivated throughout the assessment. - Laryngeal Performance S/Z Ratio S/Z Ratio 14.85/17.57 = 0.84 Respiratory and laryngeal impairment Functional for Yes Speech Reduced Laryngeal Yes Function Relative to Respiration Voice Handicap Index Function Subtotal 11 Physical Subtotal 14 Emotional Subtotal 9 Total Score 34/120 Severity Moderate (31-60) CAPE-V Overall Severity Mild (c/b mild roughness, strain, breathiness, and mildly reduced loudness) Roughness Mild Breathiness Mild Strain Mild Pitch WNL Loudness Mildly reduced Normal Resonance? Yes Maximum Phonation Time MPT Norms: Women (15-25) Men (25-35) Loudness (50-60 dB); Speaking Rate: Oral Reading of Sentences (190 Words Per Minute); Oral Reading of Paragraphs (160-170 WPM); Speaking Rate in Conversation (150-250 WPM) Maximum Phonation 8.65 seconds = Below Average Time Maximum Phonation Reduced Time Voice Pitch Range Norms: Women (100-300 Hz) Men (70-250 Hz) Fundamental Frequency Norms: Women (Mean: 225 Hz; Range: 155-334 Hz) Men ( Mean: 128 Hz; Range: 85-196 Hz) Voice Pitch Normal Voice Loudness Mildly Soft/Quiet Voice Phonatory- Hoarse,Weak based Quality Paradoxical Vocal No Fold Movement Indications Resonance Nasal Resonance Normal Oral Resonance Normal Other Observations Progressively Weak Voice,Inadequate Breath Support, Throat Clearing Findings Findings Mild Impairment Observations Based on history and pt report, and the above-reported measures, pt presents with symptoms and signs of mild dysphonia characterized by reduced overall vocal quality, strain, roughness, breathiness, and softer volume. Pt?s mild dysphonia has limited her ability to speak on the phone at work and with family at home. Prognosis for improvement is good for states goals pending cooperation and motivation. Improvement will be contingent upon pt compliance to the following recommendations. Recommendations are for skilled speech therapy services addressing mild dysphonia to improve functional communication during activities of daily living, for the most independence, and the best quality of life. Pt will receive education re: vocal hygiene and be trained in exercise techniques with the goal of reducing laryngeal tension and increasing efficient vibration of the vocal folds. Pt will be trained in the following: resonant voice exercises, SOVTE, stretch and flow, and diaphragmatic breathing to increase breath support. Recommend ENT consult for direct visualization of vocal folds (i.e. videostroboscopy) for direct visualization of vocal fold function and to rule out laryngeal muscle tension disorder given pt symptoms. Pt agreeable and provided with handout. Additionally, recommend pt receive education re: management of GERD, including alternatives to chronic cough/throat clearing. Prognosis Rehabilitation Excellent Potential - Recommendations Treatment Yes Recommended Treatment Frequency/ 1x/week for 3 months Duration Therapy The plan is for the pt to participate in speech therapy Recommendations services addressing dysphonia and chronic cough at a frequency of 1x every week as needed. Short Term Goals 1. Patient will complete ENT consult with direct visualization of pathophysiology of larynx and vocal folds (i.e., videostroboscopy) to further assess laryngeal function and inform POC. 2. Patient will benefit from education in mechanics of voicing and tone focus in order to assist in producing resonant voice. 3. Patient will complete trained voice exercises ( including, but not limited to resonant voice exercises, SOVTE, stretch and flow, and diaphragmatic breathing) in 100% of opportunities independently in order to reduce laryngeal tension and improve vocal quality. 4. Patient will participate in daily HEP targeting vocal hoarseness to improve voice quality per patient report. 5. Patient will participate in education of chronic cough/throat clearing strategies and independently recall at least two strategies. Body Fitter Goals 1. Patient will improve overall self-perception of voice from a baseline of 34/120 on the Vocal Handicap Index (VHI) to 20/120 or lower following participation in ST skilled services. 2. Patient will report increased ability to return to baseline voice activities (e.g., speaking for prolonged periods of time) without experiencing hoarseness following participation in ST skilled services. 3. Patient will report an improvement in frequency and severity of occurrence of chronic cough/throat clearing . Referrals Referrals ENT Voice/Resonance Videostroboscopy, GERD education Other Referral Patient/Caregiver Education Patient/Family Described results of evaluation,Patient Understanding Education
--- NOTE | 2025-04-22 10:36 | ST.OPPOC ---
Addendum entered by Bhanu Myers 06/12/25 11:11: Faxed POC to Ion Guan MD. Second attempt Addendum entered and electronically signed by June Krishna 04/22/25 10:38: POC sent to referring provider requesting signature if in agreement. Original Note: Physical, Occupational & Speech Therapy At [facility] Visit Care Team Role Provider Type Milind Naik MD Family Provider Physician Primary Care Provider Address: [address] [place] [address], [facility] Ion Guan MD Attending Provider Physician Other Providers Referring Provider Address: [address] [place] [address], [facility] Speech Pathology Plan of Care Plan of Care Dates 04/22/25-07/22/[address] Ion Guan, ENT Patient History Danyelle Magana is a 59-year-old female, referred for speech therapy evaluation by Dr. Guan due to concerns regarding voice. Pt presented to ENT Ion Guan MD, on 03/19/25 reporting recurrent and persistent hoarseness. Pt underwent an ankle surgery in 2021 and was intubated. She has been experiencing hoarseness since. Voice seems to ?come and go? and pt tries to clear her throat often, though with minimal improvement to vocal quality. Pt reported she has stopped long-term PPI use with increased GERD symptoms. She was prescribed alginate, but is not taking it consistently yet. Pt also reported occasional difficulty swallowing pills and sensation of lump in her throat. Results of assessment performed on that date indicated symptoms consistent with dysphonia and GERD. Flexible laryngoscopy showed no generalized erythema or thick phlegm. Voice therapy was recommended to target dysphonia and pt was provided with GERD education. PMHx significant for arthritis, hypertension, and hypothyroidism. Otherwise, her medical history is unremarkable. She has smoking history of about 4 years ago with occasional intake of caffeine/alcohol. 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 This also occurs when she feels increasingly stressed/anxious. Hoarseness also occasionally occurs at home and in the evenings when tired, though less often. Pt endorsed tightness in the anterior laryngeal area and occasionally becomes short of breath when speaking for prolonged periods of time. She stated the hoarseness seems to fluctuate, with some days being perfectly clear, and others being hoarser. Voice/Resonance Findings Mild Impairment Voice/Resonance Prognosis Excellent Voice/Resonance Yes Recommendations Voice/Resonance Treatment 1x/week for 3 months Frequency Therapy Recommendations The plan is for the pt to participate in speech therapy services addressing dysphonia and chronic cough at a frequency of 1x every week as needed. Short Term Goals 1. Patient will complete ENT consult with direct visualization of pathophysiology of larynx and vocal folds (i.e., videostroboscopy) to further assess laryngeal function and inform POC. 2. Patient will benefit from education in mechanics of voicing and tone focus in order to assist in producing resonant voice. 3. Patient will complete trained voice exercises (including, but not limited to resonant voice exercises, SOVTE, stretch and flow, and diaphragmatic breathing) in 100% of opportunities independently in order to reduce laryngeal tension and improve vocal quality. 4. Patient will participate in daily HEP targeting vocal hoarseness to improve voice quality per patient report. 5. Patient will participate in education of chronic cough/throat clearing strategies and independently recall at least two strategies. [facility] Goals 1. Patient will improve overall self-perception of voice from a baseline of 34/120 on the Vocal Handicap Index (VHI) to 20/120 or lower following participation in ST skilled services. 2. Patient will report increased ability to return to baseline voice activities (e.g., speaking for prolonged periods of time) without experiencing hoarseness following participation in ST skilled services. 3. Patient will report an improvement in frequency and severity of occurrence of chronic cough/throat clearing. Comment: Electronically Signed by: KARSTEN Miller 04/22/25 [id number] If you are in agreement with this Plan of Care, please return a signed and dated copy. I have reviewed this Plan of Care and certify that the skilled therapy services above are required to meet the patient?s needs. Physician Signature Date Printed Name and Credentials Clinical Instructor Signature Printed Name and Credentials
--- NOTE | 2025-04-29 09:44 | ST.OPTN ---
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 Treatment Note Start: 04/22/25 09:51 Freq: Status: Active Protocol: Document 04/29/25 09:34 SS (Rec: 04/29/25 09:44 SS Desktop) Speech Pathology Treatment Note Session Time Visit Start Time 09:00 Visit Stop Time 09:30 Total Visit Minutes 30 Visit Information Visit Number 2 Plan of Care Dates 04/22/25-07/22/25 [facility] (max 60) Information Setting Treatment Setting Outpatient Care Visit Type Note Type Treatment Note Next Note Type Next Note Type Treatment Note General Information Patient History Danyelle Magana is a 59-year-old female, referred for speech therapy evaluation by Dr. Guan due to concerns regarding voice. Pt presented to ENT Ion Guan MD, on 03/19/25 reporting recurrent and persistent hoarseness. Pt underwent an ankle surgery in 2021 and was intubated. She has been experiencing hoarseness since. Voice seems to ?come and go? and pt tries to clear her throat often, though with minimal improvement to vocal quality. Pt reported she has stopped long- term PPI use with increased GERD symptoms. She was prescribed alginate, but is not taking it consistently yet. Pt also reported occasional difficulty swallowing pills and sensation of lump in her throat. Results of assessment performed on that date indicated symptoms consistent with dysphonia and GERD. Flexible laryngoscopy showed no generalized erythema or thick phlegm. Voice therapy was recommended to target dysphonia and pt was provided with GERD education. PMHx significant for arthritis, hypertension, and hypothyroidism. Otherwise, her medical history is unremarkable. She has smoking history of about 4 years ago with occasional intake of caffeine/alcohol. 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 This also occurs when she feels increasingly stressed/anxious. Hoarseness also occasionally occurs at home and in the evenings when tired, though less often. Pt endorsed tightness in the anterior laryngeal area and occasionally becomes short of breath when speaking for prolonged periods of time. She stated the hoarseness seems to fluctuate, with some days being perfectly clear, and others being hoarser. Subjective Identification Type Name Observations/Patient Pt arrived to the session on time. She was engaged and Presentation motivated to participate throughout. Objective Short Term Goals 1. Patient will complete ENT consult with direct visualization of pathophysiology of larynx and vocal folds (i.e., videostroboscopy) to further assess laryngeal function and inform POC. 2. Patient will benefit from education in mechanics of voicing and tone focus in order to assist in producing resonant voice. 3. Patient will complete trained voice exercises ( including, but not limited to resonant voice exercises, SOVTE, stretch and flow, and diaphragmatic breathing) in 100% of opportunities independently in order to reduce laryngeal tension and improve vocal quality. 4. Patient will participate in daily HEP targeting vocal hoarseness to improve voice quality per patient report. 5. Patient will participate in education of chronic cough/throat clearing strategies and independently recall at least two strategies. [facility] Goals 1. Patient will improve overall self-perception of voice from a baseline of 34/120 on the Vocal Handicap Index (VHI) to 20/120 or lower following participation in ST skilled services. 2. Patient will report increased ability to return to baseline voice activities (e.g., speaking for prolonged periods of time) without experiencing hoarseness following participation in ST skilled services. 3. Patient will report an improvement in frequency and severity of occurrence of chronic cough/throat clearing . Treatment Activities Education and implementation of the following voice exercises: resonant voice exercises and SOVTE. Provided daily HEP and provided handouts. Discussed follow-up with ENT. Assessment Patient Response to Good Treatment Rehab Potential Good Impairments Voice Identified Assessment of Pt reported no change in vocal quality since last Improvement session. She reported she is still experiencing a cold and her voice has been more hoarse than usual. Encouraged pt to pursue ENT referral for videostorboscopy, which she was agreeable to. Guided pt in resonant voice therapy exercises with the goal of increasing efficiency of vocal fold vibration by using a hierarchical approach and starting with /m/ in isolation. Pt instructed to place her hands on her face for tactile feedback during the humming exercise and to focus on the vibration in the front of her face with minimal effort in the throat. Pt with accurate production on first trial. Increased to syllable/word level with cueing for stretching ?m sound and use of intent. Pt production was strained and hoarse with first trial, with improved vocal quality and decrease in strain given cue to stretch /m/ and clinician modeling in following trials. During short trials, she was initially hoarse, but was able to produce 2-3 word sentences with clear vocal quality given cueing to stretch ?m?, use diaphragmatic breathing, and use intent. Semi-Occluded Vocal Tract Exercise (SOVTE) straw phonation implemented with the goal of improving balance among the subsystems by increasing vocal tract inertance, resulting in a more efficient voice, and reducing hyperfunction. Instructed pt in initially blowing through the straw into a cup of water with no voice, increasing to 50% voice and 50% air, and advancing to pitch glides and singing preferred song. Pt demonstrated ability to do so following clinician model. Reviewed recommendation for HEP at the conclusion of the session, with pt stating understanding. HEP: resonant voice humming and words, SOVTE (bubbles in cup, straw phonation) Pt was receptive to education and recommendations. Plan to continue to advance exercises as appropriate. Plan to initiate use of resonant voice at the sentence/ conversation level and introduce alternatives to chronic throat clearing. Continue POC at a frequency of once a week. Plan Amount of Therapy 3 Months Recommended Frequency of Once a Week Treatment Length of Session 30 Minutes Therapeutic Contents Client Education,Home Exercise Program,Voice Training Provided Patient/ Home Exercise Program,Plan of Care,Questions/Concerns Caregiver Instruction Therapy Continue with Current Program Recommendations Suggested Referral ENT
--- NOTE | 2025-05-06 15:51 | ST.OPTN ---
Visit Care Team Role Provider Type Milind Naik MD Family Provider Physician Primary Care Provider Address: [address] [place] [address], [id number] Ion Guan MD Attending Provider Physician Other Providers Referring Provider Address: [address] [place] [address], [id number] RUBBER MILL TENDER Treatment Note RUBBER MILL TENDER Treatment Note Start: 04/22/25 09:51 Freq: Status: Active Protocol: Document 05/06/25 15:42 SS (Rec: 05/06/25 15:51 SS [email or web address]) Speech Pathology Treatment Note Session Time Visit Start Time 11:30 Visit Stop Time 12:05 Total Visit Minutes 35 Visit Information Visit Number 3 Plan of Care Dates 04/22/25-07/22/25 [facility] (max 60) Information Setting Treatment Setting Outpatient Care Visit Type Note Type Treatment Note Next Note Type Next Note Type Treatment Note General Information Patient History Danyelle Magana is a 59-year-old female, referred for speech therapy evaluation by Dr. Guan due to concerns regarding voice. Pt presented to ENT Ion Guan MD, on 03/19/25 reporting recurrent and persistent hoarseness. Pt underwent an ankle surgery in 2021 and was intubated. She has been experiencing hoarseness since. Voice seems to ?come and go? and pt tries to clear her throat often, though with minimal improvement to vocal quality. Pt reported she has stopped long- term PPI use with increased GERD symptoms. She was prescribed alginate, but is not taking it consistently yet. Pt also reported occasional difficulty swallowing pills and sensation of lump in her throat. Results of assessment performed on that date indicated symptoms consistent with dysphonia and GERD. Flexible laryngoscopy showed no generalized erythema or thick phlegm. Voice therapy was recommended to target dysphonia and pt was provided with GERD education. PMHx significant for arthritis, hypertension, and hypothyroidism. Otherwise, her medical history is unremarkable. She has smoking history of about 4 years ago with occasional intake of caffeine/alcohol. 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 This also occurs when she feels increasingly stressed/anxious. Hoarseness also occasionally occurs at home and in the evenings when tired, though less often. Pt endorsed tightness in the anterior laryngeal area and occasionally becomes short of breath when speaking for prolonged periods of time. She stated the hoarseness seems to fluctuate, with some days being perfectly clear, and others being hoarser. Subjective Identification Type Name Observations/Patient Pt arrived to the session on time. She was engaged and Presentation motivated to participate throughout. Objective Short Term Goals 1. Patient will complete ENT consult with direct visualization of pathophysiology of larynx and vocal folds (i.e., videostroboscopy) to further assess laryngeal function and inform POC. 2. Patient will benefit from education in mechanics of voicing and tone focus in order to assist in producing resonant voice. 3. Patient will complete trained voice exercises ( including, but not limited to resonant voice exercises, SOVTE, stretch and flow, and diaphragmatic breathing) in 100% of opportunities independently in order to reduce laryngeal tension and improve vocal quality. 4. Patient will participate in daily HEP targeting vocal hoarseness to improve voice quality per patient report. 5. Patient will participate in education of chronic cough/throat clearing strategies and independently recall at least two strategies. Usp Goals 1. Patient will improve overall self-perception of voice from a baseline of 34/120 on the Vocal Handicap Index (VHI) to 20/120 or lower following participation in ST skilled services. 2. Patient will report increased ability to return to baseline voice activities (e.g., speaking for prolonged periods of time) without experiencing hoarseness following participation in ST skilled services. 3. Patient will report an improvement in frequency and severity of occurrence of chronic cough/throat clearing . Treatment Activities Education and implementation of the following voice exercises: resonant voice exercises and SOVTE. Education re: GERD management and alternatives to chronic throat clearing. Provided daily HEP and provided handouts. Assessment Patient Response to Good Treatment Rehab Potential Good Impairments Voice Identified Assessment of Pt reported her cold has resolved, but her vocal Improvement quality remains at baseline. She has obtained referral for videostorboscopy and is awaiting scheduling. Pt reporting completing HEP, with some improvement in vocal quality noted immediately after. Guided pt in resonant voice therapy exercises with the goal of increasing efficiency of vocal fold vibration by using a hierarchical approach and starting with /m/ in isolation. Pt with accurate production on first trial. Increased to syllable/word level. Pt productions were clear in all opportunities. RUBBER MILL TENDER assisted pt in identifying short phrases she says often in order to facilitate carryover of exercise to everyday speech. During short functional phrases, pt produced phrases with clear vocal quality in about 75% of opportunities, though she tended to get hoarse on the last word of the phrase. She benefited from cueing use diaphragmatic breathing and reduce laryngeal tension by bringing her voice ?forward?. Semi-Occluded Vocal Tract Exercise (SOVTE) straw phonation implemented with the goal of improving balance among the subsystems by increasing vocal tract inertance, resulting in a more efficient voice, and reducing hyperfunction. Instructed pt in initially blowing through the straw into a cup of water with no voice, increasing to 50% voice and 50% air, and advancing to pitch glides and singing preferred song. Pt demonstrated ability to do so following RUBBER MILL TENDER model with minimal difficulty. She expressed her vocal quality was clearer following this exercise, which was consistent with RUBBER MILL TENDER observations. RUBBER MILL TENDER provided education re: implementing alternatives to habitual throat clearing to reduce vocal strain and irritation. The pt was instructed in using strategies such as taking a sip of water, performing a gentle dry swallow, or completing a light cough or hum instead of clearing her throat. Education was also provided on managing symptoms related to GERD, including elevating the head of the bed, avoiding eating within 2?3 hours before lying down, limiting acidic or spicy foods, and increasing hydration. The pt verbalized understanding and practiced strategies for throat clearing with verbal cueing for carryover. Reviewed recommendation for HEP at the conclusion of the session, with pt stating understanding. HEP: resonant voice phrases, SOVTE (bubbles in cup, straw phonation) Pt was receptive to education and recommendations. Good progress today with use of resonant voice and completion of HEP. Plan to continue to advance resonant voice as appropriate and introduce cup phonation next session. Continue POC at a frequency of once a week. Plan Amount of Therapy 3 Months Recommended Frequency of Once a Week Treatment Length of Session 30 Minutes Therapeutic Contents Client Education,Home Exercise Program,Voice Training Provided Patient/ Home Exercise Program,Plan of Care,Questions/Concerns Caregiver Instruction Therapy Continue with Current Program Recommendations Suggested Referral ENT
--- NOTE | 2025-05-20 13:39 | ST.PROG ---
Visit Care Team Role Provider Type Milind Naik MD Family Provider Physician Primary Care Provider Address: [address] [place] [address], [id number] Ion Guan MD Attending Provider Physician Other Providers Referring Provider Address: [address] [place] [address], [id number] MEDICAL RECORD CODER Progress Note MEDICAL RECORD CODER Treatment Note Start: 04/22/25 09:51 Freq: Status: Active Protocol: Document 05/20/25 13:27 SS (Rec: 05/20/25 13:39 SS [email or web address]) Speech Pathology Treatment Note Session Time Visit Start Time 11:30 Visit Stop Time 12:00 Total Visit Minutes 30 Visit Information Visit Number 4 Plan of Care Dates 04/22/25-07/22/25 [facility] (max 60) Information Setting Treatment Setting Outpatient Care Visit Type Note Type Progress Note Next Note Type Next Note Type Treatment Note General Information Patient History Danyelle Magana is a 59-year-old female, referred for speech therapy evaluation by Dr. Guan due to concerns regarding voice. Pt presented to ENT Ion Guan MD, on 03/19/25 reporting recurrent and persistent hoarseness. Pt underwent an ankle surgery in 2021 and was intubated. She has been experiencing hoarseness since. Voice seems to ?come and go? and pt tries to clear her throat often, though with minimal improvement to vocal quality. Pt reported she has stopped long- term PPI use with increased GERD symptoms. She was prescribed alginate, but is not taking it consistently yet. Pt also reported occasional difficulty swallowing pills and sensation of lump in her throat. Results of assessment performed on that date indicated symptoms consistent with dysphonia and GERD. Flexible laryngoscopy showed no generalized erythema or thick phlegm. Voice therapy was recommended to target dysphonia and pt was provided with GERD education. PMHx significant for arthritis, hypertension, and hypothyroidism. Otherwise, her medical history is unremarkable. She has smoking history of about 4 years ago with occasional intake of caffeine/alcohol. 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 This also occurs when she feels increasingly stressed/anxious. Hoarseness also occasionally occurs at home and in the evenings when tired, though less often. Pt endorsed tightness in the anterior laryngeal area and occasionally becomes short of breath when speaking for prolonged periods of time. She stated the hoarseness seems to fluctuate, with some days being perfectly clear, and others being hoarser. Subjective Identification Type Name Observations/Patient Pt arrived to the session on time. She was engaged and Presentation motivated to participate throughout. Objective Short Term Goals 1. Patient will complete ENT consult with direct visualization of pathophysiology of larynx and vocal folds (i.e., videostroboscopy) to further assess laryngeal function and inform POC. 05/20/25: Goal progressing. 2. Patient will benefit from education in mechanics of voicing and tone focus in order to assist in producing resonant voice. 05/20/25: Goal progressing. 3. Patient will complete trained voice exercises ( including, but not limited to resonant voice exercises, SOVTE, stretch and flow, and diaphragmatic breathing) in 100% of opportunities independently in order to reduce laryngeal tension and improve vocal quality. 05/20/25: Goal progressing. 4. Patient will participate in daily HEP targeting vocal hoarseness to improve voice quality per patient report. 05/20/25: Goal progressing. 5. Patient will participate in education of chronic cough/throat clearing strategies and independently recall at least two strategies. 05/20/25: Goal progressing. Furnace Operator Goals 1. Patient will improve overall self-perception of voice from a baseline of 34/120 on the Vocal Handicap Index (VHI) to 20/120 or lower following participation in ST skilled services. 05/20/25: Goal progressing. 2. Patient will report increased ability to return to baseline voice activities (e.g., speaking for prolonged periods of time) without experiencing hoarseness following participation in ST skilled services. 05/20/25: Goal progressing. 3. Patient will report an improvement in frequency and severity of occurrence of chronic cough/throat clearing . 05/20/25: Goal progressing. Treatment Activities Continued education and implementation of the following voice exercises: resonant voice exercises and SOVTE. Reviewed education re: GERD management and alternatives to chronic throat clearing. Provided daily HEP and provided handouts. Discussed POC given ongoing symptoms of GERD likely contributing to vocal hoarseness. Assessment Patient Response to Good Treatment Rehab Potential Good Impairments Voice Identified Assessment of MEDICAL RECORD CODER facilitated discussion re: vocal quality since last Improvement session. Pt reported clear vocal quality over the past week with sudden hoarseness this morning. She reported she had eaten food that was spicy last night which may have contributed to voice quality. Pt reported she has been completing HEP daily and has noticed an improvement in her vocal quality. She is now taking Omeprazole again to control GERD. In process of scheduling videostorboscopy and ENT consult. Guided pt in resonant voice therapy exercises with the goal of increasing efficiency of vocal fold vibration by using a hierarchical approach and starting with /m/ in isolation. Pt with accurate production on first trial. Increased to syllable/word level. Pt productions were clear in all opportunities. In conversation, pt with clear vocal quality about 90% of the time. She benefited from cueing to bring her voice ?forward? to reduce potential laryngeal tension. Semi-Occluded Vocal Tract Exercise (SOVTE) straw phonation implemented with the goal of improving balance among the subsystems by increasing vocal tract inertance, resulting in a more efficient voice, and reducing hyperfunction. Instructed pt in initially blowing through the straw into a cup of water with no voice, increasing to 50% voice and 50% air, and advancing to pitch glides and singing preferred song. Pt demonstrated ability to do so following MEDICAL RECORD CODER model in and out of the water with minimal difficulty. She demonstrated clear vocal quality following the exercise . Reviewed education re: implementing alternatives to habitual throat clearing to reduce vocal strain and irritation. Pt expressed she has been trying to implement strategies, though continues to experience globus sensation. Overall, pt demonstrated improved vocal quality and reduced hoarseness when using resonant voice and SOVTE. Suspect vocal hoarseness is caused by GERD/LPR given pt presentation, inconsistent response to voice exercises, and ongoing throat clearing/globus sensation . Pt to participate in ENT consultation for videostroboscopy and GERD management to further guide POC prior to continuation of MEDICAL RECORD CODER services. Pt expressed understanding of plan and is agreeable. Plan Amount of Therapy 3 Months Recommended Frequency of Once a Week Treatment Length of Session 30 Minutes Therapeutic Contents Client Education,Home Exercise Program,Voice Training Provided Patient/ Home Exercise Program,Plan of Care,Questions/Concerns Caregiver Instruction Therapy Continue with Current Program Recommendations Suggested Referral ENT Visit Care Team Role Provider Type Milind Naik MD Family Provider Physician Primary Care Provider Specialty: Family Practice Address: [address] [place] [address], [id number] Email: [email or web address] Ion Guan MD Attending Provider Physician Other Providers Referring Provider Specialty: Ear, Nose, Throat Address: [address] [place] [address], [facility] Email: [email or web address]
--- NOTE | 2025-06-06 12:39 | ST.OPDS ---
Visit Care Team Role Provider Type Milind Naik MD Family Provider Physician Primary Care Provider Address: [address] [place] [address], [id number] Ion Guan MD Attending Provider Physician Other Providers Referring Provider Address: [address] [place] [address], [id number] KILN BURNER Treatment Note KILN BURNER Treatment Note Start: 04/22/25 09:51 Freq: Status: Active Protocol: Document 05/20/25 13:27 SS (Rec: 05/20/25 13:39 SS [email or web address]) Speech Pathology Treatment Note Session Time Visit Start Time 11:30 Visit Stop Time 12:00 Total Visit Minutes 30 Visit Information Visit Number 4 Plan of Care Dates 04/22/25-07/22/25 [facility] (max 60) Information Setting Treatment Setting Outpatient Care Visit Type Note Type Progress Note Next Note Type Next Note Type Treatment Note General Information Patient History Danyelle Magana is a 59-year-old female, referred for speech therapy evaluation by Dr. Guan due to concerns regarding voice. Pt presented to ENT Ion Guan MD, on 03/19/25 reporting recurrent and persistent hoarseness. Pt underwent an ankle surgery in 2021 and was intubated. She has been experiencing hoarseness since. Voice seems to ?come and go? and pt tries to clear her throat often, though with minimal improvement to vocal quality. Pt reported she has stopped long- term PPI use with increased GERD symptoms. She was prescribed alginate, but is not taking it consistently yet. Pt also reported occasional difficulty swallowing pills and sensation of lump in her throat. Results of assessment performed on that date indicated symptoms consistent with dysphonia and GERD. Flexible laryngoscopy showed no generalized erythema or thick phlegm. Voice therapy was recommended to target dysphonia and pt was provided with GERD education. PMHx significant for arthritis, hypertension, and hypothyroidism. Otherwise, her medical history is unremarkable. She has smoking history of about 4 years ago with occasional intake of caffeine/alcohol. 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 This also occurs when she feels increasingly stressed/anxious. Hoarseness also occasionally occurs at home and in the evenings when tired, though less often. Pt endorsed tightness in the anterior laryngeal area and occasionally becomes short of breath when speaking for prolonged periods of time. She stated the hoarseness seems to fluctuate, with some days being perfectly clear, and others being hoarser. Subjective Identification Type Name Observations/Patient Pt arrived to the session on time. She was engaged and Presentation motivated to participate throughout. Objective Short Term Goals 1. Patient will complete ENT consult with direct visualization of pathophysiology of larynx and vocal folds (i.e., videostroboscopy) to further assess laryngeal function and inform POC. 05/20/25: Goal progressing. 2. Patient will benefit from education in mechanics of voicing and tone focus in order to assist in producing resonant voice. 05/20/25: Goal progressing. 3. Patient will complete trained voice exercises ( including, but not limited to resonant voice exercises, SOVTE, stretch and flow, and diaphragmatic breathing) in 100% of opportunities independently in order to reduce laryngeal tension and improve vocal quality. 05/20/25: Goal progressing. 4. Patient will participate in daily HEP targeting vocal hoarseness to improve voice quality per patient report. 05/20/25: Goal progressing. 5. Patient will participate in education of chronic cough/throat clearing strategies and independently recall at least two strategies. 05/20/25: Goal progressing. Line Servicer Goals 1. Patient will improve overall self-perception of voice from a baseline of 34/120 on the Vocal Handicap Index (VHI) to 20/120 or lower following participation in ST skilled services. 05/20/25: Goal progressing. 2. Patient will report increased ability to return to baseline voice activities (e.g., speaking for prolonged periods of time) without experiencing hoarseness following participation in ST skilled services. 05/20/25: Goal progressing. 3. Patient will report an improvement in frequency and severity of occurrence of chronic cough/throat clearing . 05/20/25: Goal progressing. Treatment Activities Continued education and implementation of the following voice exercises: resonant voice exercises and SOVTE. Reviewed education re: GERD management and alternatives to chronic throat clearing. Provided daily HEP and provided handouts. Discussed POC given ongoing symptoms of GERD likely contributing to vocal hoarseness. Assessment Patient Response to Good Treatment Rehab Potential Good Impairments Voice Identified Assessment of KILN BURNER facilitated discussion re: vocal quality since last Improvement session. Pt reported clear vocal quality over the past week with sudden hoarseness this morning. She reported she had eaten food that was spicy last night which may have contributed to voice quality. Pt reported she has been completing HEP daily and has noticed an improvement in her vocal quality. She is now taking Omeprazole again to control GERD. In process of scheduling videostorboscopy and ENT consult. Guided pt in resonant voice therapy exercises with the goal of increasing efficiency of vocal fold vibration by using a hierarchical approach and starting with /m/ in isolation. Pt with accurate production on first trial. Increased to syllable/word level. Pt productions were clear in all opportunities. In conversation, pt with clear vocal quality about 90% of the time. She benefited from cueing to bring her voice ?forward? to reduce potential laryngeal tension. Semi-Occluded Vocal Tract Exercise (SOVTE) straw phonation implemented with the goal of improving balance among the subsystems by increasing vocal tract inertance, resulting in a more efficient voice, and reducing hyperfunction. Instructed pt in initially blowing through the straw into a cup of water with no voice, increasing to 50% voice and 50% air, and advancing to pitch glides and singing preferred song. Pt demonstrated ability to do so following KILN BURNER model in and out of the water with minimal difficulty. She demonstrated clear vocal quality following the exercise . Reviewed education re: implementing alternatives to habitual throat clearing to reduce vocal strain and irritation. Pt expressed she has been trying to implement strategies, though continues to experience globus sensation. Overall, pt demonstrated improved vocal quality and reduced hoarseness when using resonant voice and SOVTE. Suspect vocal hoarseness is caused by GERD/LPR given pt presentation, inconsistent response to voice exercises, and ongoing throat clearing/globus sensation . Pt to participate in ENT consultation for videostroboscopy and GERD management to further guide POC prior to continuation of KILN BURNER services. Pt expressed understanding of plan and is agreeable. *KILN BURNER called pt to discuss POC as pt has not been seen since last treatment session on 05/20. Pt in process of scheduling ENT evaluation. KILN BURNER to discharge pt account. Pt is aware that she may request new referral from PCP if additional voice treatment is recommended. However, suspect dysphonia is related to GERD management and is likely to resolve with additional medical/behavioral management.* Plan Amount of Therapy 3 Months Recommended Frequency of Once a Week Treatment Length of Session 30 Minutes Therapeutic Contents Client Education,Home Exercise Program,Voice Training Provided Patient/ Home Exercise Program,Plan of Care,Questions/Concerns Caregiver Instruction Therapy Continue with Current Program Recommendations Suggested Referral ENT
== END 2025-06-11 14:55 | disposition home or self-care (01) ==
LOC: SP 11:30
PROVIDERS: Family Provider Family Medicine; PCP Family Medicine; Referring Provider Otolaryngology; Visit Provider Otolaryngology
DX: R49.0 Dysphonia (principal); R09.89 Other specified symptoms and signs involving the circulatory and respiratory systems; R05.3 Chronic cough; K21.9 Gastro-esophageal reflux disease without esophagitis
CPT/HCPCS: 92507; 92524

== ENCOUNTER → 2025-06-05 15:29 | Outpatient (CLI) | payer OTHER, SELFPAY ==
[2025-06-05 15:55] LABS: Estimated Glomerular Filt Rate > 60 mL/min (>60)
== END ==
PROVIDERS: PCP Family Medicine; Referring Provider Family Medicine; Visit Provider Family Medicine
DX: H93.A3 Pulsatile tinnitus, bilateral (principal)
CPT/HCPCS: 36415; 82565

== ENCOUNTER → 2025-06-06 15:32 | Outpatient (CLI) | payer OTHER, SELFPAY ==
--- NOTE | 2025-06-06 15:33 | DI.CT.S_ITS ---
PROCEDURE: CT ANGIO HEAD AND NECK INDICATIONS: pulsatile tinnitus TECHNIQUE: After the administration of intravenous contrast, 1 mm thick sections acquired from the aortic arch through the [place] of [place]. 3-dimensional iydtshz-aqzmpuikd-lodvjotwcy (MIP) and/or volume rendering reformats were acquired of the central intracranial vasculature and neck separately. For radiation dose reduction, the following was used: automated exposure control, adjustment of mA and/or kV according to patient size. COMPARISON: None. FINDINGS: Image quality: Diagnostic. Cerebral CT Angiogram: Internal carotid arteries: No acute findings. Intracranial ICA are patent with no significant stenosis. No occlusion. No aneurysm. Anterior cerebral arteries: Unremarkable. No significant stenosis. No occlusion. No aneurysm. Middle cerebral arteries: Unremarkable. No significant stenosis. No occlusion. No aneurysm. Posterior cerebral arteries: Unremarkable. No significant stenosis. No occlusion. No aneurysm. Basilar artery: Unremarkable. No significant stenosis. No occlusion. No aneurysm. Vertebral arteries: Unremarkable as visualized. Dural venous sinuses: Unremarkable given phase of enhancement. Other: Arterial phase appearance of the brain parenchyma is unremarkable. Neck CT Angiogram: Internal carotid arteries: Unremarkable. No significant stenosis. No dissection or occlusion. Common carotid arteries: Artifact from surgical clips in the thyroid bed limited evaluation of the proximal artery. No significant stenosis otherwise. No dissection or occlusion. External carotid arteries: Unremarkable. No occlusion. Vertebral arteries: Unremarkable. No significant stenosis. No dissection or occlusion. Aortic Arch and Mediastinum: Partially visualized aortic arch unremarkable without evidence of aneurysm. Origins of the great vessels unremarkable. Other: Arterial phase soft tissues of the neck and chest are unremarkable. Status post thyroidectomy. IMPRESSION: No significant intracranial arterial abnormality is seen. No significant abnormality is seen within the arteries of the neck. Any quantitative measurements of stenosis were performed using NASCET criteria. Dictated by: Kevin Petersen M.D. on 06/07/2025 at 13:08 Approved by: Kevin Petersen M.D. on 06/07/2025 at 13:26
--- NOTE | 2025-06-06 15:37 | DI.CT.S_ITS ---
PROCEDURE: CT LUNG LOW DOSE SCREENING INDICATIONS: lung cancer screening TECHNIQUE: Noncontrast 2.0-2.5 mm thick sections acquired from the pulmonary apices to the posterior costophrenic angles. 7 mm thick axial MIP, and 5 mm coronal and sagittal reformats were then acquired. For radiation dose reduction, the following was used: automated exposure control, adjustment of mA and/or kV according to patient size. COMPARISON: [facility], CT, CT LUNG LOW DOSE SCREENING, 04/14/2023, 9:38. FINDINGS: Image quality: Diagnostic Lungs and pleura: Scattered scarring and atelectasis. No airspace consolidation or pleural effusions. No suspicious nodules seen Mediastinum, heart, and esophagus: Patulous esophagus. Normal heart size. No lymph nodes enlarged by size criteria Chest wall and thyroid: Thyroid bed postsurgical changes. No axillary lymph nodes enlarged by size criteria Upper abdomen: Unremarkable on this limited low-dose noncontrast CT Bones: There are degenerative changes. No aggressive appearing osseous abnormality. IMPRESSION: No suspicious pulmonary nodules. LUNG-RADS 1; continued annual screening, if eligible. Dictated by: Roberto Minaya M.D. on 06/08/2025 at 11:17 Approved by: Roberto Minaya M.D. on 06/08/2025 at 11:20
== END ==
LOC: CT 15:32
PROVIDERS: PCP Family Medicine; Referring Provider Family Medicine; Visit Provider Family Medicine
DX: H93.A3 Pulsatile tinnitus, bilateral (principal); R42 Dizziness and giddiness; Z87.891 Personal history of nicotine dependence; Z90.89 Acquired absence of other organs
CPT/HCPCS: 70496; 70498; 71271; Q9967

== ENCOUNTER → 2025-07-02 06:57 | Outpatient (CLI) | payer OTHER, SELFPAY ==
--- NOTE | 2025-07-02 06:58 | DI.US.S_ITS ---
PROCEDURE: US ART LOW EXT BILAT W/CONNOR INDICATIONS: CHILBLAIN LUPUS TECHNIQUE: Color and pulse Doppler interrogation was performed of both lower extremity arterial systems, with image documentation. COMPARISON: None. FINDINGS: Right lower extremity: Common femoral artery: 176 cm/sec, with triphasic flow. Deep femoral artery: 87 cm/sec, with triphasic flow. Proximal superficial femoral artery: 141 cm/sec, with triphasic flow. Mid superficial femoral artery: 118 cm/sec, with triphasic flow. Distal superficial femoral artery: 83 cm/sec, with triphasic flow. Popliteal artery: 61 cm/sec, with triphasic flow. Posterior tibial artery: 77 cm/sec, with triphasic flow. Anterior tibial artery/dorsalis pedis: 53 cm/sec, with triphasic flow. Claire-scale imaging description: No significant plaque throughout the right lower extremity arterial system CONNOR: 1.1 Left lower extremity: Common femoral artery: 156 cm/sec, with triphasic flow. Deep femoral artery: 74 cm/sec, with triphasic flow. Proximal superficial femoral artery: 95 cm/sec, with triphasic flow. Mid superficial femoral artery: 88 cm/sec, with triphasic flow. Distal superficial femoral artery: 64 cm/sec, with triphasic flow. Popliteal artery: 64 cm/sec, with triphasic flow. Posterior tibial artery: 86 cm/sec, with triphasic flow. Anterior tibial artery/dorsalis pedis: 52 cm/sec, with triphasic flow. Claire-scale imaging description: Minimal plaque involving the dorsalis pedis artery. No significant plaque throughout the left lower extremity arterial system. CONNOR:1.1 IMPRESSION: No hemodynamically significant stenosis involving bilateral lower extremity arterial systems. Normal ABIs bilaterally. Dictated by: Tino Way M.D. on 07/03/2025 at 7:58 Approved by: Tino Way M.D. on 07/03/2025 at 8:02
== END ==
LOC: US 06:57
PROVIDERS: PCP Family Medicine; Referring Provider Family Medicine; Visit Provider Family Medicine
DX: T69.1XXA Chilblains, initial encounter (principal)
CPT/HCPCS: 93922; 93925